=== PATIENT | female | born 1940 | race Caucasian/White ===

== ENCOUNTER 2017-11-17 14:43 | Inpatient (IN) | payer MEDICARE, OTHER ==
[~2017-11-17] VITALS: Ht 157.5 cm; Wt 93.6 kg
[2017-11-17 15:09] VITALS: BP 115/62; PULSE 64; TEMP 36.9; O2SAT 94; Ht 157.5 cm; Wt 93.6 kg
[2017-11-17] MEDS ORDERED: NRN300 PO (15:13)
[2017-11-17] MEDS ORDERED: MULT-190 PO (15:13)
[2017-11-17] MEDS ORDERED: BIOT1CAP3 PO (15:13)
[2017-11-17] MEDS ORDERED: PRAM0.1212 PO (15:13)
[2017-11-17] MEDS ORDERED: VTMD1000 PO (15:13)
[2017-11-17] MEDS ORDERED: PANT40TA PO (15:13)
[2017-11-17] MEDS ORDERED: LOSA50TA6 PO (15:13)
[2017-11-17] MEDS ORDERED: ASPI-435 PO (15:13)
[2017-11-17] MEDS ORDERED: CRG625 PO (15:13)
[2017-11-17] MEDS ORDERED: B-COTAB18 PO (15:13)
[2017-11-17] MEDS ORDERED: NRN/600 PO (15:13)
[2017-11-17] MEDS ORDERED: LEVO50TA PO (15:13)
[2017-11-17] MEDS ORDERED: FURO-85 PO (15:13)
[2017-11-17] MEDS ORDERED: ATOR-24 PO (15:13)
[2017-11-17] MEDS ORDERED: ALUMINUM/MAGNESIUM/SIMETH (MAALOX MAX) 30 ML UDC PO PRN (15:30)
[2017-11-17] MEDS ORDERED: NITROGLYCERIN 0.4 MG SL PER TAB CHARGE SL PRN (15:30)
[2017-11-17] MEDS ORDERED: MAGNESIUM HYDROXIDE SUSP 30 ML UDC PO PRN (15:30)
[2017-11-17] MEDS ORDERED: POLYETHYLENE (MIRALAX) 17 GM PACK PO PRN (15:30)
[2017-11-17] MEDS ORDERED: VANCOMYCIN CONSULT ACTIVE PRN (15:30)
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
[2017-11-17] MEDS ORDERED: CEFEPIME CONSULT ACTIVE PRN (16:15)
[2017-11-17] MEDS: INSULIN ASPART 100 UNITS/ML 3 ML PEN SC SCH ×2 (17:10→20:08)
[2017-11-17] MEDS: AZITHROMYCIN IV 500 MG in DEXTROSE 5% 250ML 250 ML IV SCH (17:11)
[2017-11-17 17:19] LABS: HEMATOCRIT 29.5 % (37-47); HEMOGLOBIN 9.6 g/dL (12.0-16.0); MEAN CELL VOLUME 92.2 fL (80-100); MEAN CORPUSCULAR HGB CONC 32.5 g/dl (32-36); MEAN PLATELET VOLUME 9.6 fL (7.4-10.4); PLATELET COUNT 129 K/uL (130-400); RED CELL DISTRIBUTION WIDTH CV 16.2 % (11.5-14.5); WHITE BLOOD COUNT 8.02 K/uL (4.8-10.8)
[2017-11-17 17:33] LABS: INR 1.1 (0.9-1.1)
--- NOTE | 2017-11-17 17:39 | DIAGNOSTIC IMAGING REPORT ---
CHEST ONE VIEW PORTABLE HISTORY: 76 years-old Female worsening PNA acute pneumonia COMPARISON: Chest radiographs 11/17/2017 from [facility] TECHNIQUE: Portable AP view of the chest FINDINGS: Cardiac silhouette appears enlarged, unchanged. Atherosclerosis of the aorta. Right internal jugular central venous catheter appears unchanged in positioning with distal tip at the level of the right main bronchus, within the expected region of the mid SVC. Pulmonary vascular congestion is noted with bilateral interstitial coarsening. Small bilateral pleural effusions. Consolidative opacities are noted throughout the right lung with minimal preservation of the right lung apex. Consolidative opacities are also present within the left lung base. There is slightly improved aeration of the left lung and mildly progressive disease of the right lung base from comparison. Severe likely chronic post traumatic changes about the right shoulder. Degenerative changes involve the shoulders and spine. IMPRESSION: 1. Cardiomegaly with persistent bilateral mixed interstitial and alveolar opacities, right greater than left with improved aeration of the left lung from comparison suggesting asymmetric pulmonary edema and/or pneumonia. 2. Small bilateral pleural effusions. The above report was generated using voice recognition software. It may contain grammatical, syntax or spelling errors. Electronically signed by: Luca Arora M.D. 11/17/2017 5:37 PM Dictated Date/Time: 11/17/2017 5:34 PM
[2017-11-17 17:42] LABS: CALCIUM 8.2 mg/dl (8.5-10.1); CREATININE 1.72 mg/dl (0.60-1.20); POTASSIUM 3.7 mmol/L (3.5-5.1)
--- NOTE | 2017-11-17 18:13 | Pharmacy Progress Note ---
Pharmacy Antibiotic Consult Date of Service: Nov 17, 2017. Pharmacy Dosing Scope Pharmacy is consulted to initiate vancomycin and cefepime IV dosing therapy, order appropriate labs and adjust drug dose/frequency. Subjective The patient is a 76 year old female admitted on Nov 17, 2017 at 14:43. Objective Height (Feet): 5 Height (Inches): 2.00 Weight (Kilograms): 96.200 Lab Results (24hrs): Item Value Date Time Random Vancomycin Level 26.1 mcg/ml 11/17/17 1656 Test 11/17/17 16:05 11/17/17 16:56 11/17/17 17:04 11/17/17 17:41 Bedside Glucose 106 mg/dl (70-90) White Blood Count 8.02 K/uL (4.8-10.8) Red Blood Count 3.20 M/uL (4.2-5.4) Hemoglobin 9.6 g/dL (12.0-16.0) Hematocrit 29.5 % (37-47) Mean Corpuscular Volume 92.2 fL (80-100) Mean Corpuscular Hemoglobin 30.0 pg (25-34) Mean Corpuscular Hemoglobin Concent 32.5 g/dl (32-36) RDW Standard Deviation 55.0 fL (36.4-46.3) RDW Coefficient of Variation 16.2 % (11.5-14.5) Platelet Count 129 K/uL (130-400) Mean Platelet Volume 9.6 fL (7.4-10.4) Prothrombin Time 11.4 SECONDS (9.0-12.0) Prothromb Time International Ratio 1.1 (0.9-1.1) Activated Partial Thromboplast Time 28.0 SECONDS (21.0-31.0) Partial Thromboplastin Ratio 1.1 Sodium Level 137 mmol/L (136-145) Potassium Level 3.7 mmol/L (3.5-5.1) Chloride Level 97 mmol/L (98-107) Carbon Dioxide Level 37 mmol/L (21-32) Anion Gap 3.0 mmol/L (3-11) Blood Urea Nitrogen 29 mg/dl (7-18) Creatinine 1.72 mg/dl (0.60-1.20) Est Creatinine Clear Calc Drug Dose 30.1 ml/min Estimated GFR () 32.9 Estimated GFR (Non- 28.4 BUN/Creatinine Ratio 16.9 (10-20) Random Glucose 130 mg/dl (70-99) Calcium Level 8.2 mg/dl (8.5-10.1) Random Vancomycin Level 26.1 mcg/ml Arterial Blood pH 7.41 (7.35-7.45) Arterial Blood Partial Pressure CO2 59 mmHg (35-46) Arterial Blood Partial Pressure O2 72 mm/Hg (80-95) Arterial Blood HCO3 36 mmol/L (19-24) Arterial Blood Oxygen Saturation 92.6 % (90-95) Arterial Blood Base Excess 10.0 mEq/L (-9-1.8) Arterial Blood Gas Delivery 6 LITERS O2 Bassam Test POS (POS) Test 11/17/17 18:02 Assessment & Plan Pt transferred from outside hospital due to worsening pneumonia. Previously on vancomycin and cefepime - will continue these agents on admission. Per notes, cultures from OSH are negative, MRSA nasal swab pending. Vancomycin: * Pt received dose at OSH of 750 mg at 0600 - per admitting MD ; random level ordered this evening is ~26 mcg/ml (goal 15-20 mcg/ml for PNA) * Estimated kinetics: t1/2~24 hrs, ke~0.029 hr-1, CrCl ~30ml/min * Will order a random level in the am to assist with further dosing, estimated level tomorrow am still >15 mcg/ml (therapeutic) Cefepime: * 1 gm iv q 24 hrs ordered - appropriate for now, could consider adjusting if Scr improves Pharmacy will continue to follow and will adjust dose/frequency as necessary. Thank you
--- NOTE | 2017-11-17 18:37 | DIAGNOSTIC IMAGING REPORT ---
HEAD WITHOUT CONTRAST (CT) CLINICAL HISTORY: 76 years-old Female with AMS. Acutely altered mental status TECHNIQUE: Multiple axial CT images of the head were obtained without contrast. A dose lowering technique was utilized adhering to the principles of ALARA. CT DOSE: 1694.96 mGycm COMPARISON: CT head 11/15/2017. FINDINGS: No acute intracranial hemorrhage, midline shift, intracranial mass, hydrocephalus, territorial ischemia or abnormal extra-axial collection. Ill-defined areas of low-attenuation within the periventricular white matter suggest mild chronic microvascular ischemic changes. Cerebral vascular calcifications are seen at the level of the skull base. The calvarium is intact. The paranasal sinuses, mastoid air cells, and middle ear cavities are clear. IMPRESSION: No acute intracranial abnormality. The above report was generated using voice recognition software. It may contain grammatical, syntax or spelling errors. Electronically signed by: Luca Arora M.D. 11/17/2017 6:36 PM Dictated Date/Time: 11/17/2017 6:34 PM
[2017-11-17 18:40] VITALS: BP 173/72; PULSE 77; TEMP 37; O2SAT 95
[2017-11-17] MEDS: ALBUT/IPRATROP 3MG/0.5MG NEB 3 ML VIAL INH SCH (18:58)
[2017-11-17 19:00] VITALS: PULSE 77; O2SAT 96
[2017-11-17 20:00] VITALS: O2SAT 91
[2017-11-17] MEDS: ACETAMINOPHEN 325 MG TAB PO PRN (20:26)
[2017-11-17] MEDS: GABAPENTIN 600 MG TAB PO SCH (20:27)
[2017-11-17] MEDS: PRAMIPEXOLE DIHYDROCHLORIDE 0.25MG TAB PO SCH (20:27)
[2017-11-17] MEDS: GABAPENTIN 300 MG CAP PO SCH (20:28)
[2017-11-17] MEDS: CARVEDILOL 6.25 MG TAB PO SCH (20:28)
[2017-11-17] MEDS: HEPARIN SOD 5000 UNIT/0.5 ML CARP SQ SCH (20:29)
[2017-11-17] MEDS ORDERED: VANCOMYCIN IV 1,000 MG in SODIUM CHLORIDE 0.9% 250ML 250 ML IV SCH (21:00)
[2017-11-17] MEDS ORDERED: NURSING VERBAL MED ORDER ONE (21:00)
[2017-11-17] MEDS ORDERED: HALOPERIDOL LACTATE 5 MG/ML 1 ML VIAL IV ONE ×2 (21:15→21:30)
[2017-11-17 23:25] VITALS: BP 140/63; PULSE 67; TEMP 36.9; O2SAT 93
[2017-11-18] VITALS (21 sets, daily range): BP systolic 136–210; BP diastolic 59–116; PULSE 62–90; TEMP 36–37; O2SAT 45–98
[2017-11-18 04:48] LABS: HEMATOCRIT 28.6 % (37-47); HEMOGLOBIN 9.3 g/dL (12.0-16.0); MEAN CELL VOLUME 91.7 fL (80-100); MEAN CORPUSCULAR HEMOGLOBIN 29.8 pg (25-34); MEAN CORPUSCULAR HGB CONC 32.5 g/dl (32-36); MEAN PLATELET VOLUME 9.6 fL (7.4-10.4); PLATELET COUNT 132 K/uL (130-400); RED CELL DISTRIBUTION WIDTH CV 16.1 % (11.5-14.5); RED CELL DISTRIBUTION WIDTH SD 53.9 fL (36.4-46.3); WHITE BLOOD COUNT 6.87 K/uL (4.8-10.8)
[2017-11-18 05:06] LABS: CREATININE 1.56 mg/dl (0.60-1.20); POTASSIUM 3.7 mmol/L (3.5-5.1)
[2017-11-18] MEDS: LEVOTHYROXINE 50 MCG TAB PO SCH (05:51)
[2017-11-18] MEDS: ALBUT/IPRATROP 3MG/0.5MG NEB 3 ML VIAL INH SCH ×4 (07:00→19:10)
[2017-11-18] MEDS: GABAPENTIN 300 MG CAP PO SCH ×3 (08:49→21:29)
[2017-11-18] MEDS: CEROVITE ADV FORMULA TAB PO SCH (08:49)
[2017-11-18] MEDS: PANTOprazole SOD 40 MG TAB PO SCH (08:49)
[2017-11-18] MEDS: ATORVASTATIN 20 MG TAB PO SCH (08:49)
[2017-11-18] MEDS: FUROSEMIDE 20 MG TAB PO SCH (08:50)
[2017-11-18] MEDS: CHOLECALCIFEROL 1000 INTER.UNIT TAB PO SCH (08:50)
[2017-11-18] MEDS: ASPIRIN 81 MG ECTAB PO SCH (08:51)
[2017-11-18] MEDS: LOSARTAN POTASSIUM 50 MG TAB PO SCH (08:51)
[2017-11-18] MEDS: CARVEDILOL 6.25 MG TAB PO SCH ×2 (08:51→21:28)
[2017-11-18] MEDS: INSULIN ASPART 100 UNITS/ML 3 ML PEN SC SCH ×4 (08:53→21:32)
[2017-11-18] MEDS: HEPARIN SOD 5000 UNIT/0.5 ML CARP SQ SCH ×2 (08:55→21:32)
[2017-11-18] MEDS ORDERED: CEFEPIME IV 1,000 MG in SYRINGE 0 ML IV SCH (09:00)
[2017-11-18] MEDS ORDERED: CEFEPIME IV 1,000 MG in DEXTROSE 5% 100ML 100 ML IV SCH (09:00)
[2017-11-18] MEDS ORDERED: PIPERACILL/TAZOBAC CONSULT ACTIVE PRN (10:00)
--- NOTE | 2017-11-18 10:15 | DIAGNOSTIC IMAGING REPORT ---
CT SCAN OF THE ABDOMEN AND PELVIS WITHOUT IV CONTRAST CLINICAL HISTORY: Generalized abdominal pain. COMPARISON STUDY: Abdominal radiograph dated 11/13/2017. TECHNIQUE: CT scan of the abdomen and pelvis is performed from the lung bases to the proximal femora. Images are reviewed in the axial, sagittal, and coronal planes. IV contrast was not administered for this examination as per the referring clinician. Note that the examination was performed and significantly suboptimal fashion without oral and IV contrast. The examination is also degraded by large body habitus, with streak artifact from the body wall abutting the CT gantry. There is also streak artifact from the patient's arms which could not be elevated above the abdomen as well as motion artifact. A dose lowering technique was utilized adhering to the principles of ALARA. CT DOSE: 2025.15 mGy.cm FINDINGS: Lung bases: The heart is normal in size and without pericardial effusion. The coronary arteries and mitral annulus are densely calcified. There are moderate pleural effusions with associated bibasilar atelectasis. A small hiatal hernia is noted. Liver: The unenhanced liver is normal in size, contour, and attenuation. There is no intrahepatic biliary ductal dilatation. There are numerous calcified hepatic granulomas. Gallbladder: Unremarkable. Spleen: Normal in size and attenuation. There are numerous calcified splenic granulomas. Pancreas: The unenhanced pancreas is markedly atrophic and grossly unremarkable. Adrenal glands: Unremarkable. Kidneys: The unenhanced kidneys are atrophic and without hydronephrosis. There are no renal calculi identified. There is no evidence of contour deforming renal mass lesion. There is nonspecific bilateral perinephric stranding and trace fluid. Abdominal vasculature: The abdominal aorta is normal in course and caliber noting moderate atherosclerotic calcification. Bowel: There is diastases of the rectus abdominis musculature in the pelvis with protrusion of bowel loops. There is mild colonic diverticulosis without CT evidence of acute diverticulitis. No bowel obstruction is seen. The appendix is not identified. Peritoneum: There is no intraperitoneal free air or abdominal ascites. A fat-containing umbilical hernia is noted. Lymphadenopathy: None. Pelvic viscera: The bladder is partially decompressed around a Ivory catheter and grossly unremarkable. The uterus is surgically absent. No adnexal lesion is seen. Skeletal structures: The skeletal structures are osteopenic. There is moderate to advanced lumbosacral spondylosis as well as mild scoliosis. No lytic or blastic lesions are seen. There are healed right posterior rib fractures. There are acute nondistracted right anterior 4th through 8th rib fractures. There are acute left anterior 4th through 6th rib fractures. Soft tissues: There is mild body wall edema. IMPRESSION: 1. Significantly compromised examination without oral and IV contrast. The examination is also degraded by streak and motion artifact. 2. Moderate bilateral pleural effusions with associated atelectasis. 3. There are acute anterior rib fractures seen bilaterally as above. 4. No acute infectious or inflammatory findings are identified in the abdomen or pelvis. 5. There is diastases of the rectus abdominis musculature in the pelvis with protrusion of bowel loops. No bowel obstruction is seen. 6. Additional findings as above. Electronically signed by: Donald Patiño M.D. 11/18/2017 10:14 AM Dictated Date/Time: 11/18/2017 10:04 AM
[2017-11-18] MEDS ORDERED: PIPERACILL/TAZOBAC IV 4.5 GM in DEXTROSE 5% 100ML IV ONE (10:30)
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
[2017-11-18] MEDS: METHYLPREDNISOLONE IV 60 MG in SYRINGE 0 ML IV SCH ×2 (10:56→17:47)
--- NOTE | 2017-11-18 11:26 | Pharmacy Progress Note ---
Pharmacy Abx Dose Short Note Date of Service Nov 18, 2017. Assessment & Plan Assessment * 76 year old female receiving transferred from [facility] for worsening pneumonia despite abx therapy and likely need for bronchoscopy * Pt has h/o recurrent PNA including fungal pneumonia * Was receiving Vancomycin + Cefepime prior to x-nicholas; now ordered Vancomycin + Zosyn + Azithromycin IV * Day # 5 vancomycin; Day # 1 of Zosyn + Azithromycin * Renal fxn stable, slightly improved based upon labs. U.O. not being followed closely. Non-hypotensive. * MRSA nasal swab negative, however given pt's poor response to abx therapy hospitalist would like to continue vancomycin at this time * Sputum cx pending Plan Vancomycin * 750mg IV reported to have been given at ~0600 on 11/17 * Random vancomycin levels drawn yesterday and today ~11-12 hours apart, level 1 = 26.1, level 2 = 21.8 * Based upon these levels I estimate her rate of elimination to be quite slow, in fact her half-life may be 40+ hrs based upon these levels vs the half-life calculated from her CrCl (22 hours half-life) * I estimate she will need redosed this afternoon at ~1600. Will give 1250mg x 1 (15mg/kg) * Will recheck random level 24 hrs after dose to assess elimination - but I suspect that she likely will not need redosed for 36+ hours * Goal trough level for pulm infxn : 15 to 20 mcg/mL Zosyn: * BMI > 35 * eCrCl > 20cc/min; 4.5gm IV over 30min, then 4.5gm IV extended infusion Q 8 hours Pharmacy will continue to follow and will adjust dose/frequency as necessary. Thank you.
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
[2017-11-18] MEDS ORDERED: PIPERACILL/TAZOBAC IV 3.375 GM in DEXTROSE 5% 100ML 100 ML IV SCH (14:00)
[2017-11-18] MEDS: AZITHROMYCIN IV 500 MG in DEXTROSE 5% 250ML 250 ML IV SCH (15:31)
[2017-11-18] MEDS: PIPERACILL/TAZOBAC IV 4.5 GM in DEXTROSE 5% 100ML IV SCH ×2 (15:31→23:22)
[2017-11-18] MEDS ORDERED: VANCOMYCIN IV 1,250 MG in SODIUM CHLORIDE 0.9% 250ML 250 ML IV ONE (16:00)
[2017-11-18] MEDS: HydrALAZINE HCL 20 MG/ML VIAL IV. PRN ×2 (16:35→23:19)
[2017-11-18] MEDS ORDERED: LIDOCAINE HCL 1% 20 ML VIAL ONE (17:22)
--- NOTE | 2017-11-18 18:06 | DIAGNOSTIC IMAGING REPORT ---
CHEST ONE VIEW PORTABLE CLINICAL HISTORY: S/P Thoracentesis PNEUMONIA COMPARISON STUDY: 11/17/2017 FINDINGS: The cardiac and mediastinal contours remain stable. There is a right internal jugular central venous catheter unchanged in position. There is improved aeration of the right lung. There is no pneumothorax status post thoracentesis. There is mild pulmonary vascular congestion. A small left pleural effusion is suspected.[ There are old right-sided rib deformities. IMPRESSION: 1. Radiographic evidence of mild pulmonary vascular congestion 2. No evidence of pneumothorax status post thoracentesis. 3. Improving aeration of the right lung. Electronically signed by: Everardo Ribera M.D. 11/18/2017 6:05 PM Dictated Date/Time: 11/18/2017 6:03 PM
--- NOTE | 2017-11-18 18:10 | Procedure Note ---
Procedure Note Procedure Date Nov 18, 2017. Procedure Description Procedure Name: Right thoracentesis Procedure time out: side/site verified, patient ID confirmed, correct procedure Consent obtained: written, verbal Time of procedure: 17:00 Performed by: attending, physician soyfreeze operator (Donald Hernadez PA-C) Indications: diagnostic, therapeutic Contraindications: none Description: Patient positioned in sitting position at the side of the bed, leaning on the table. Using ultrasound, I identified a good collection of fluid in the posterior area on the right side of the chest and marked the spot. Area was cleaned with chlorhexidine. Full sterile precautions maintained. The skin over the area was infiltrated with 1% Lidocaine, after which the thoracentesis needle was inserted until I obtained a flush of pleural fluid in the syringe. Then, I advanced the catheter over the needle while withdrawing the needle. Sample were sent Overall I drained 900 ml of pink/orange appearing fluid, slightly turbid, after which the drainage stopped Catheter was withdrawn and an adhesive dressing was applied. CXR reviewed. No pneumothorax. Near complete resolution of right pleural effusion Complications: none Patient tolerated procedure: well Post-procedure vital signs: reviewed and stable
[2017-11-18 18:17] LABS: PLEURAL FLUID TOTAL PROTEIN 2.8 g/dl
[2017-11-18] MEDS: PRAMIPEXOLE DIHYDROCHLORIDE 0.25MG TAB PO SCH (21:28)
[2017-11-18] MEDS: GABAPENTIN 600 MG TAB PO SCH (21:29)
[2017-11-19] VITALS (12 sets, daily range): BP systolic 119–176; BP diastolic 58–97; PULSE 70–98; TEMP 36.6–37.1; O2SAT 91–97
[2017-11-19] MEDS: INSULIN ASPART 100 UNITS/ML 3 ML PEN SC SCH ×5 (00:19→20:43)
[2017-11-19] MEDS: METHYLPREDNISOLONE IV 60 MG in SYRINGE 0 ML IV SCH ×2 (04:15→11:22)
[2017-11-19 04:22] LABS: HEMATOCRIT 31.2 % (37-47); HEMOGLOBIN 10.2 g/dL (12.0-16.0); MEAN CELL VOLUME 90.7 fL (80-100); MEAN CORPUSCULAR HEMOGLOBIN 29.7 pg (25-34); MEAN CORPUSCULAR HGB CONC 32.7 g/dl (32-36); MEAN PLATELET VOLUME 9.2 fL (7.4-10.4); PLATELET COUNT 180 K/uL (130-400); RED CELL DISTRIBUTION WIDTH CV 15.4 % (11.5-14.5); RED CELL DISTRIBUTION WIDTH SD 51.3 fL (36.4-46.3); WHITE BLOOD COUNT 5.69 K/uL (4.8-10.8)
[2017-11-19 04:50] LABS: ALBUMIN 2.2 gm/dl (3.4-5.0); CALCIUM 8.2 mg/dl (8.5-10.1); CREATININE 1.59 mg/dl (0.60-1.20)
[2017-11-19 04:59] LABS: TOTAL PROTEIN 6.5 gm/dl (6.4-8.2)
[2017-11-19] MEDS: LEVOTHYROXINE 50 MCG TAB PO SCH (06:19)
[2017-11-19] MEDS: ALBUT/IPRATROP 3MG/0.5MG NEB 3 ML VIAL INH SCH ×4 (07:01→19:32)
[2017-11-19] MEDS: PIPERACILL/TAZOBAC IV 4.5 GM in DEXTROSE 5% 100ML IV SCH ×3 (08:03→23:39)
--- NOTE | 2017-11-19 09:20 | Pulmonology Progress Note ---
Pulmonary Progress Note Date of Service Nov 19, 2017. Attending Dr. Martínez Subjective Patient sitting upright in bedside chair. Alert and oriented X 4. Expresses hunger. Was able to recall daughters phone number and spoke to her on the phone. No fever or chills. Cough but no significant sputum. Positive pain with cough secondary to recent rib fractures. Objective Vital Signs - as noted below Laboratory Data - as noted below Physical Exam: General - NAD. Pleasant Eyes - No icterus, gaze conjugate ENT - Mucosa moist, no lesions or candidiasis. Oxymask in place Neck - Supple, No JVD. Right IJ inplace. Dressing in place and secure Lungs - No bronchospasm, rales, or rhonchi. Heart - Regular, rate controlled Abdomen - Soft, NT, ND, BS present Extremities - No edema, pedal pulses intact Neuro - A&OX3 Assessment & Plan Bilateral pleural effusions * Right thoracentesis yesterday with 900 mL evacuated -await pathology and microbiology results * Monitor clinically Hypoxemic/hypercapnic respiratory failure * Right thoracentesis yesterday with significant improvement to respiratory status * BiPAP successfully used overnight. Continue as tolerated * Patient up in chair, alert and oriented, on Oxymask this morning * Continue antibiotics pending cultures * Continue steroids but decrease methylprednisolone to 40 mg every 12 hours DVT prophylaxis * Continue heparin subcu Thank you for including us in the care of this patient. Please refer to Dr. Martínez's addendum for further recommendations Data Medications: Current Inpatient Medications Medications (Trade) Dose Ordered Sig/Dexter Route Start Time Stop Time Status Last Admin Dose Admin Heparin Sodium (Porcine) (Heparin Sq 5000 Unit/0.5ml) 5,000 unit Q12 SQ 11/17/17 21:00 12/17/17 20:59 11/18/17 21:32 5,000 UNIT Acetaminophen (Tylenol Tab) 650 mg Q4H PRN PO 11/17/17 15:30 12/17/17 15:29 11/17/17 20:26 650 MG Al Hydrox/Mg Hydrox/Simethicone (Maalox Max Susp) 15 ml Q4H PRN PO 11/17/17 15:30 12/17/17 15:29 Magnesium Hydroxide (Milk Of Magnesia Susp) 30 ml Q12H PRN PO 11/17/17 15:30 12/17/17 15:29 Ondansetron HCl (Zofran Inj) 4 mg Q6H PRN IV 11/17/17 15:30 12/17/17 15:29 Nitroglycerin (Nitrostat Tab) 0.4 mg UD PRN SL 11/17/17 15:30 12/17/17 15:29 Polyethylene (Miralax Powder Packet) 17 gm DAILY PRN PO 11/17/17 15:30 12/17/17 15:29 Albuterol/ Ipratropium (Duoneb) 3 ml QIDR INH 11/17/17 16:00 12/17/17 15:59 11/19/17 07:01 3 ML Miscellaneous Information (Consult) 1 ea UD PRN N/A 11/17/17 15:30 12/17/17 15:29 Azithromycin 500 mg/Dextrose 255 ml @ 125 mls/hr Q24H IV 11/17/17 17:00 11/24/17 16:59 11/18/17 15:31 125 MLS/HR Aspirin (Ecotrin Tab) 81 mg DAILY PO 11/18/17 09:00 12/18/17 08:59 11/18/17 08:51 81 MG Atorvastatin Calcium (Lipitor Tab) 40 mg DAILY PO 11/18/17 09:00 12/18/17 08:59 11/18/17 08:49 40 MG Carvedilol (Coreg Tab) 6.25 mg BID PO 11/17/17 21:00 12/17/17 20:59 11/18/17 08:51 6.25 MG Cholecalciferol (Vitamin D Tab) 2,000 inter.unit DAILY PO 11/18/17 09:00 12/18/17 08:59 11/18/17 08:50 2,000 INTER.UNIT Gabapentin (Neurontin Cap) 300 mg TID PO 11/17/17 21:00 12/17/17 20:59 11/18/17 08:49 300 MG Gabapentin (Neurontin Tab) 600 mg HS PO 11/17/17 21:00 12/17/17 20:59 11/17/17 20:27 600 MG Levothyroxine Sodium (Synthroid Tab) 50 mcg DAILYBB PO 11/18/17 06:00 12/18/17 05:59 11/18/17 05:51 50 MCG Losartan Potassium (coZAAR TAB) 50 mg DAILY PO 11/18/17 09:00 12/18/17 08:59 11/18/17 08:51 50 MG Multivitamins/ Minerals (Multivitamin W/ Minerals Tab) 1 tab DAILY PO 11/18/17 09:00 12/18/17 08:59 11/18/17 08:49 1 TAB Pantoprazole Sodium (Protonix Tab) 40 mg DAILY PO 11/18/17 09:00 12/18/17 08:59 11/18/17 08:49 40 MG Pramipexole Dihydrochloride (miraPEX TAB) 0.5 mg HS PO 11/17/17 21:00 12/17/17 20:59 11/17/17 20:27 0.5 MG Furosemide (Lasix Tab) 20 mg DAILY PO 11/18/17 09:00 12/18/17 08:59 11/18/17 08:50 20 MG Heparin Sodium (Porcine) (Heparin 10 Unit/ ml 5 ml Flush) 5 ml PRN PRN FLUSH 11/17/17 23:15 12/17/17 23:14 Miscellaneous Information (Consult) 1 ea UD PRN N/A 11/18/17 10:00 12/18/17 09:59 Piperacillin Sod/ Tazobactam Sod 4.5 gm/Dextrose 120 ml @ 30 mls/hr Q8H IV 11/18/17 16:00 11/25/17 15:59 11/19/17 08:03 30 MLS/HR Methylprednisolone Sodium Succinate 60 mg/Syringe 0.96 ml @ 1.5 mls/min Q8H IV 11/18/17 11:00 12/18/17 10:29 11/19/17 04:15 1.5 MLS/MIN Hydromorphone HCl (Dilaudid Inj) 0.25 mg Q1H PRN IV 11/18/17 10:30 12/02/17 10:29 Hydralazine HCl (HydrALAZINE INJ) 10 mg Q6H PRN IV. 11/18/17 15:45 12/18/17 15:44 11/18/17 23:19 10 MG Insulin Aspart (novoLOG ASPART) SLIDING SCALE G... Q6 SC 11/19/17 00:00 12/19/17 00:00 11/19/17 06:29 2 UNITS Vital Signs: Date Time Temp Pulse Resp B/P (MAP) Pulse Ox O2 Delivery O2 Flow Rate FiO2 11/19/17 08:34 145/66 (92) 11/19/17 07:35 37.1 92 16 176/73 (107) 93 BiPAP 11/19/17 07:04 91 91 45 11/19/17 07:03 91 20 94 BiPAP/CPAP 45 11/19/17 04:00 BiPAP 45 11/19/17 03:55 36.6 98 20 119/58 (78) 94 BiPAP 11/19/17 00:00 BiPAP 45 11/18/17 23:58 36.6 86 16 178/81 (113) 95 BiPAP 11/18/17 22:29 89 95 45 11/18/17 20:00 45 BiPAP 11/18/17 19:51 83 18 155/78 (103) BiPAP 40 11/18/17 19:11 86 94 11/18/17 19:10 89 16 94 BiPAP/CPAP 45 11/18/17 18:30 37.0 27 162/85 (110) 94 BiPAP 11/18/17 16:00 92 Oxymask BiPAP 11/18/17 15:12 36.9 74 10 210/116 (147) 92 BiPAP 11/18/17 14:24 62 92 11/18/17 14:24 86 18 92 BiPAP/CPAP 45 11/18/17 13:20 92 11/18/17 12:22 36.0 63 16 149/82 (104) 95 BiPAP 11/18/17 12:00 92 Oxymask BiPAP 11/18/17 11:28 90 92 11/18/17 11:25 90 18 92 BiPAP/CPAP 40 Laboratory Results: Last 24 Hours Test 11/18/17 10:46 11/18/17 10:47 11/18/17 11:14 11/18/17 11:20 Iron Level 20 mcg/dl Total Iron Binding Capacity 199 mcg/dl Transferrin 154 mg/dl Transferrin % Saturation 9 % Ferritin 171.9 ng/ml Vitamin B12 Level 958 pg/mL Folate > 24.00 ng/mL Lactic Acid Level 1.0 mmol/L Urine Color YELLOW Urine Appearance CLOUDY Urine pH 6.5 Urine Specific [place] 1.008 Urine Protein NEG Urine Glucose (UA) NEG Urine Ketones NEG Urine Occult Blood 2+ Urine Nitrite NEG Urine Bilirubin NEG Urine Urobilinogen NEG Urine Leukocyte Esterase LARGE Urine WBC (Auto) >30 /hpf Urine RBC (Auto) 10-30 /hpf Urine Hyaline Casts (Auto) 1-5 /lpf Urine Epithelial Cells (Auto) 10-20 /lpf Urine Bacteria (Auto) NEG Urine Pathogenic Casts 1-5 GRANULAR CASTS /lpf Urine Yeast (Auto) Bedside Glucose 134 mg/dl Test 11/18/17 15:04 11/18/17 16:13 11/18/17 17:10 11/18/17 17:46 Arterial Blood pH 7.40 Arterial Blood Partial Pressure CO2 61 mmHg Arterial Blood Partial Pressure O2 62 mm/Hg Arterial Blood HCO3 37 mmol/L Arterial Blood Oxygen Saturation 89.0 % Arterial Blood Base Excess 10.2 mEq/L Arterial Blood Gas Delivery 45% Bassam Test POS Bedside Glucose 166 mg/dl Pleural Fluid Source RIGHT LUNG Pleural Fluid Color RED Pleural Fluid Appearance BLOODY Pleural Fluid WBC 1796 /uL Pleural Fluid RBC 75279 /uL Pleural Fluid pH 7.47 Pleural Fluid Polynuclear WBCs % 8.5 % Pleural Fluid Mononuclear WBCs % 91.5 % Pleural Fluid Total Protein 2.8 g/dl Pleural Fluid LDH 164 IU Pleural Fluid Glucose 171 mg/dl Pleural Fluid Amylase 24 U/L Lactate Dehydrogenase 274 U/L Test 11/18/17 23:46 11/19/17 04:12 11/19/17 06:08 Bedside Glucose 175 mg/dl 205 mg/dl White Blood Count 5.69 K/uL Red Blood Count 3.44 M/uL Hemoglobin 10.2 g/dL Hematocrit 31.2 % Mean Corpuscular Volume 90.7 fL Mean Corpuscular Hemoglobin 29.7 pg Mean Corpuscular Hemoglobin Concent 32.7 g/dl RDW Standard Deviation 51.3 fL RDW Coefficient of Variation 15.4 % Platelet Count 180 K/uL Mean Platelet Volume 9.2 fL Sodium Level 137 mmol/L Potassium Level 4.0 mmol/L Chloride Level 97 mmol/L Carbon Dioxide Level 33 mmol/L Anion Gap 7.0 mmol/L Blood Urea Nitrogen 30 mg/dl Creatinine 1.59 mg/dl Est Creatinine Clear Calc Drug Dose 32.3 ml/min Estimated GFR () 36.2 Estimated GFR (Non- 31.2 BUN/Creatinine Ratio 18.7 Random Glucose 192 mg/dl Calcium Level 8.2 mg/dl Total Bilirubin 1.1 mg/dl Direct Bilirubin 0.3 mg/dl Aspartate Amino Transf (AST/SGOT) 14 U/L Alanine Aminotransferase (ALT/SGPT) 28 U/L Alkaline Phosphatase 94 U/L Total Protein 6.5 gm/dl Albumin 2.2 gm/dl
[2017-11-19] MEDS: PANTOprazole SOD 40 MG TAB PO SCH (10:18)
[2017-11-19] MEDS: CEROVITE ADV FORMULA TAB PO SCH (10:18)
[2017-11-19] MEDS: GABAPENTIN 300 MG CAP PO SCH ×3 (10:19→20:39)
[2017-11-19] MEDS: ATORVASTATIN 20 MG TAB PO SCH (10:19)
[2017-11-19] MEDS: CARVEDILOL 6.25 MG TAB PO SCH ×2 (10:19→20:41)
[2017-11-19] MEDS: CHOLECALCIFEROL 1000 INTER.UNIT TAB PO SCH (10:19)
[2017-11-19] MEDS: LOSARTAN POTASSIUM 50 MG TAB PO SCH (10:22)
[2017-11-19] MEDS: ASPIRIN 81 MG ECTAB PO SCH (10:22)
[2017-11-19] MEDS: HEPARIN SOD 5000 UNIT/0.5 ML CARP SQ SCH ×2 (10:25→20:44)
[2017-11-19] MEDS: FUROSEMIDE 20 MG TAB PO SCH (11:22)
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
[2017-11-19] MEDS: AZITHROMYCIN IV 500 MG in DEXTROSE 5% 250ML 250 ML IV SCH (17:38)
[2017-11-19] MEDS ORDERED: NURSING VERBAL MED ORDER ONE ×2 (17:45)
[2017-11-19] MEDS ORDERED: LANTUS PER UNIT CHARGE SQ SCH (18:00)
[2017-11-19] MEDS: METHYLPREDNISOLONE IV 40 MG in SYRINGE 0 ML IV SCH (19:56)
[2017-11-19] MEDS: GABAPENTIN 600 MG TAB PO SCH (20:39)
[2017-11-19] MEDS: PRAMIPEXOLE DIHYDROCHLORIDE 0.25MG TAB PO SCH (20:39)
[2017-11-20] VITALS (12 sets, daily range): BP systolic 104–162; BP diastolic 59–83; PULSE 59–70; TEMP 35.6–37.1; O2SAT 88–98
[2017-11-20] MEDS: LEVOTHYROXINE 50 MCG TAB PO SCH (06:03)
[2017-11-20 06:59] LABS: HEMATOCRIT 30.6 % (37-47); HEMOGLOBIN 9.9 g/dL (12.0-16.0); MEAN CELL VOLUME 90.8 fL (80-100); MEAN CORPUSCULAR HEMOGLOBIN 29.4 pg (25-34); MEAN CORPUSCULAR HGB CONC 32.4 g/dl (32-36); MEAN PLATELET VOLUME 9.4 fL (7.4-10.4); PLATELET COUNT 239 K/uL (130-400); RED CELL DISTRIBUTION WIDTH CV 15.4 % (11.5-14.5); RED CELL DISTRIBUTION WIDTH SD 50.7 fL (36.4-46.3); WHITE BLOOD COUNT 7.38 K/uL (4.8-10.8)
[2017-11-20] MEDS: INSULIN ASPART 100 UNITS/ML 3 ML PEN SC SCH ×4 (07:00→21:10)
[2017-11-20] MEDS: ALBUT/IPRATROP 3MG/0.5MG NEB 3 ML VIAL INH SCH ×4 (07:01→19:13)
[2017-11-20 07:46] LABS: CALCIUM 8.4 mg/dl (8.5-10.1); CREATININE 1.75 mg/dl (0.60-1.20); POTASSIUM 3.6 mmol/L (3.5-5.1)
[2017-11-20] MEDS ORDERED: VANCOMYCIN IV 1,250 MG in SODIUM CHLORIDE 0.9% 250ML 250 ML IV ONE ×2 (08:30→09:30)
[2017-11-20] MEDS: METHYLPREDNISOLONE IV 40 MG in SYRINGE 0 ML IV SCH (08:34)
[2017-11-20] MEDS: CARVEDILOL 6.25 MG TAB PO SCH ×2 (08:35→21:08)
[2017-11-20] MEDS: LOSARTAN POTASSIUM 50 MG TAB PO SCH (08:35)
[2017-11-20] MEDS: FUROSEMIDE 20 MG TAB PO SCH (08:36)
[2017-11-20] MEDS: ATORVASTATIN 20 MG TAB PO SCH (08:36)
[2017-11-20] MEDS: ASPIRIN 81 MG ECTAB PO SCH (08:36)
[2017-11-20] MEDS: CEROVITE ADV FORMULA TAB PO SCH (08:36)
[2017-11-20] MEDS: GABAPENTIN 300 MG CAP PO SCH ×3 (08:37→21:07)
[2017-11-20] MEDS: PANTOprazole SOD 40 MG TAB PO SCH (08:37)
[2017-11-20] MEDS: CHOLECALCIFEROL 1000 INTER.UNIT TAB PO SCH (08:37)
[2017-11-20] MEDS: PIPERACILL/TAZOBAC IV 4.5 GM in DEXTROSE 5% 100ML IV SCH ×3 (08:39→23:20)
[2017-11-20] MEDS: HEPARIN SOD 5000 UNIT/0.5 ML CARP SQ SCH ×2 (08:40→21:10)
[2017-11-20] MEDS: AZITHROMYCIN 250 MG TAB PO SCH (09:00)
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
[2017-11-20] MEDS ORDERED: LANTUS PER UNIT CHARGE SQ SCH (13:00)
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
--- NOTE | 2017-11-20 14:27 | Pulmonology Progress Note ---
Pulmonary Progress Note Date of Service Nov 20, 2017. Attending Dr. Martínez Subjective Patient sitting in bedside chair. Nasal cannula in place. Oxygenation adequate. Poor time sleeping last night the patient states that this is usual for her. Minimal cough. No hemoptysis or significant sputum. No acute complaints Objective Vital Signs - as noted below Laboratory Data - as noted below Physical Exam: General - NAD. Pleasant. Talkative with no dyspnea with phonation Eyes - No icterus, gaze conjugate ENT - Mucosa moist, no lesions or candidiasis. nasal cannula in place Neck - Supple, No JVD. Right IJ inplace. Dressing in place and secure Lungs - No bronchospasm, rales, or rhonchi. Heart - Regular, rate controlled Abdomen - Soft, NT, ND, BS present Extremities - No edema, pedal pulses intact Neuro - A&OX3 Assessment & Plan Bilateral pleural effusions * Right thoracentesis yesterday with 900 mL evacuated * No organisms on pleural fluid culture * Await pathology results * Monitor clinically Hypoxemic/hypercapnic respiratory failure * S/P Right thoracentesis with significant improvement to respiratory status * Now oxygenating well with nasal cannula * Continue antibiotics - de-escalate -MRSA screening negative. No growth on pleural fluid * Convert to prednisone oral taper DVT prophylaxis * Continue heparin subcu * Ambulate as tolerated Thank you for including us in the care of this patient. Please refer to Dr. Martínez's addendum for further recommendations Data Medications: Current Inpatient Medications Medications (Trade) Dose Ordered Sig/Dexter Route Start Time Stop Time Status Last Admin Dose Admin Heparin Sodium (Porcine) (Heparin Sq 5000 Unit/0.5ml) 5,000 unit Q12 SQ 11/17/17 21:00 12/17/17 20:59 11/20/17 08:40 5,000 UNIT Acetaminophen (Tylenol Tab) 650 mg Q4H PRN PO 11/17/17 15:30 12/17/17 15:29 11/17/17 20:26 650 MG Al Hydrox/Mg Hydrox/Simethicone (Maalox Max Susp) 15 ml Q4H PRN PO 11/17/17 15:30 12/17/17 15:29 Magnesium Hydroxide (Milk Of Magnesia Susp) 30 ml Q12H PRN PO 11/17/17 15:30 12/17/17 15:29 Ondansetron HCl (Zofran Inj) 4 mg Q6H PRN IV 11/17/17 15:30 12/17/17 15:29 Nitroglycerin (Nitrostat Tab) 0.4 mg UD PRN SL 11/17/17 15:30 12/17/17 15:29 Polyethylene (Miralax Powder Packet) 17 gm DAILY PRN PO 11/17/17 15:30 12/17/17 15:29 Albuterol/ Ipratropium (Duoneb) 3 ml QIDR INH 11/17/17 16:00 12/17/17 15:59 11/20/17 11:41 3 ML Aspirin (Ecotrin Tab) 81 mg DAILY PO 11/18/17 09:00 12/18/17 08:59 11/20/17 08:36 81 MG Atorvastatin Calcium (Lipitor Tab) 40 mg DAILY PO 11/18/17 09:00 12/18/17 08:59 11/20/17 08:36 40 MG Carvedilol (Coreg Tab) 6.25 mg BID PO 11/17/17 21:00 12/17/17 20:59 11/20/17 08:35 6.25 MG Cholecalciferol (Vitamin D Tab) 2,000 inter.unit DAILY PO 11/18/17 09:00 12/18/17 08:59 11/20/17 08:37 2,000 INTER.UNIT Gabapentin (Neurontin Cap) 300 mg TID PO 11/17/17 21:00 12/17/17 20:59 11/20/17 08:37 300 MG Gabapentin (Neurontin Tab) 600 mg HS PO 11/17/17 21:00 12/17/17 20:59 11/19/17 20:39 600 MG Levothyroxine Sodium (Synthroid Tab) 50 mcg DAILYBB PO 11/18/17 06:00 12/18/17 05:59 11/20/17 06:03 50 MCG Losartan Potassium (coZAAR TAB) 50 mg DAILY PO 11/18/17 09:00 12/18/17 08:59 11/20/17 08:35 50 MG Multivitamins/ Minerals (Multivitamin W/ Minerals Tab) 1 tab DAILY PO 11/18/17 09:00 12/18/17 08:59 11/20/17 08:36 1 TAB Pantoprazole Sodium (Protonix Tab) 40 mg DAILY PO 11/18/17 09:00 12/18/17 08:59 11/20/17 08:37 40 MG Pramipexole Dihydrochloride (miraPEX TAB) 0.5 mg HS PO 11/17/17 21:00 12/17/17 20:59 11/19/17 20:39 0.5 MG Furosemide (Lasix Tab) 20 mg DAILY PO 11/18/17 09:00 12/18/17 08:59 Future Hold 11/20/17 08:36 20 MG Heparin Sodium (Porcine) (Heparin 10 Unit/ ml 5 ml Flush) 5 ml PRN PRN FLUSH 11/17/17 23:15 12/17/17 23:14 Miscellaneous Information (Consult) 1 ea UD PRN N/A 11/18/17 10:00 12/18/17 09:59 Piperacillin Sod/ Tazobactam Sod 4.5 gm/Dextrose 120 ml @ 30 mls/hr Q8H IV 11/18/17 16:00 11/25/17 15:59 11/20/17 08:39 30 MLS/HR Hydromorphone HCl (Dilaudid Inj) 0.25 mg Q1H PRN IV 11/18/17 10:30 12/02/17 10:29 Hydralazine HCl (HydrALAZINE INJ) 10 mg Q6H PRN IV. 11/18/17 15:45 12/18/17 15:44 11/18/17 23:19 10 MG Insulin Aspart (novoLOG ASPART) SLIDING SCALE G... ACHS SC 11/19/17 16:15 12/19/17 00:00 11/20/17 11:00 9 UNITS Azithromycin (Zithromax Tab) 250 mg Q24H PO 11/20/17 09:00 11/27/17 08:59 Prednisone (PredniSONE TAB) 60 mg QAM PO 11/21/17 09:00 12/21/17 08:59 I & O: 24-Hour Column 11/21/17 08:00 Intake Total 530 ml Balance 530 ml Vital Signs: Date Time Temp Pulse Resp B/P (MAP) Pulse Ox O2 Delivery O2 Flow Rate FiO2 11/20/17 11:39 Nasal Cannula 5.0 11/20/17 11:18 36.5 60 20 104/65 (78) 97 Nasal Cannula 5.0 11/20/17 11:05 65 16 96 Nasal Cannula 5.0 11/20/17 07:40 Nasal Cannula 5.0 11/20/17 07:01 70 16 94 Mask 5.0 11/20/17 06:59 36.4 69 20 141/70 (93) 95 Oxymask 5.0 11/20/17 05:14 37.1 64 18 119/63 (81) 92 BiPAP 11/20/17 04:00 BiPAP 45 11/20/17 00:15 37.1 69 17 143/68 (93) 88 Nasal Cannula 6.0 11/20/17 00:00 BiPAP 45 11/19/17 23:40 70 96 45 11/19/17 20:00 Oxymask 5.0 11/19/17 19:32 75 16 95 Mask 5.0 11/19/17 19:28 36.7 76 20 144/63 (90) 92 Oxymask 5.0 11/19/17 16:00 Oxymask 5.0 11/19/17 15:20 74 16 94 Mask 5.0 11/19/17 15:10 36.9 77 18 126/97 (107) 97 Oxymask 5.0 Laboratory Results: Last 24 Hours Test 11/19/17 16:03 11/19/17 16:17 11/19/17 19:53 11/20/17 06:32 Random Vancomycin Level 23.5 mcg/ml Bedside Glucose 290 mg/dl 269 mg/dl White Blood Count 7.38 K/uL Red Blood Count 3.37 M/uL Hemoglobin 9.9 g/dL Hematocrit 30.6 % Mean Corpuscular Volume 90.8 fL Mean Corpuscular Hemoglobin 29.4 pg Mean Corpuscular Hemoglobin Concent 32.4 g/dl RDW Standard Deviation 50.7 fL RDW Coefficient of Variation 15.4 % Platelet Count 239 K/uL Mean Platelet Volume 9.4 fL Sodium Level 137 mmol/L Potassium Level 3.6 mmol/L Chloride Level 95 mmol/L Carbon Dioxide Level 34 mmol/L Anion Gap 8.0 mmol/L Blood Urea Nitrogen 39 mg/dl Creatinine 1.75 mg/dl Est Creatinine Clear Calc Drug Dose 28.8 ml/min Estimated GFR () 32.2 Estimated GFR (Non- 27.8 BUN/Creatinine Ratio 22.3 Random Glucose 183 mg/dl Calcium Level 8.4 mg/dl Procalcitonin 0.10 ng/ml Test 11/20/17 07:12 11/20/17 11:20 Bedside Glucose 174 mg/dl 202 mg/dl
[2017-11-20] MEDS: GABAPENTIN 600 MG TAB PO SCH (21:07)
[2017-11-20] MEDS: PRAMIPEXOLE DIHYDROCHLORIDE 0.25MG TAB PO SCH (21:08)
[2017-11-21] VITALS (15 sets, daily range): BP systolic 103–170; BP diastolic 47–94; PULSE 54–68; TEMP 35.7–36.7; O2SAT 91–100
[2017-11-21 04:15] LABS: BASO % 0.1 %; BASO ABS # 0.01 K/uL (0-0.2); EOS % 0.2 %; EOS ABS # 0.02 K/uL (0-0.5); HEMATOCRIT 29.9 % (37-47); HEMOGLOBIN 9.9 g/dL (12.0-16.0); IG# 0.03 K/uL (0.00-0.02); LYMPH % 19.6 %; LYMPH ABS # 1.78 K/uL (1.2-3.4); MEAN CELL VOLUME 90.3 fL (80-100); MEAN CORPUSCULAR HEMOGLOBIN 29.9 pg (25-34); MEAN CORPUSCULAR HGB CONC 33.1 g/dl (32-36); MONO % 9.2 %; MONO ABS # 0.84 K/uL (0.11-0.59); NEUT % 70.6 %; NEUT ABS # 6.42 K/uL (1.4-6.5); PLATELET COUNT 222 K/uL (130-400); RED CELL DISTRIBUTION WIDTH CV 15.4 % (11.5-14.5); RED CELL DISTRIBUTION WIDTH SD 50.9 fL (36.4-46.3)
[2017-11-21 04:51] LABS: CREATININE 1.81 mg/dl (0.60-1.20)
[2017-11-21 04:52] LABS: CALCIUM 7.8 mg/dl (8.5-10.1); POTASSIUM 3.2 mmol/L (3.5-5.1)
[2017-11-21 04:53] LABS: ALBUMIN 2.3 gm/dl (3.4-5.0); TOTAL PROTEIN 6.4 gm/dl (6.4-8.2)
[2017-11-21] MEDS ORDERED: NURSING VERBAL MED ORDER ONE (05:15)
[2017-11-21] MEDS: LEVOTHYROXINE 50 MCG TAB PO SCH (05:28)
[2017-11-21] MEDS ORDERED: POTASSIUM CHLORIDE 20 MEQ TABCR PO SCH (05:30)
[2017-11-21] MEDS: ALBUT/IPRATROP 3MG/0.5MG NEB 3 ML VIAL INH SCH ×4 (06:58→18:56)
[2017-11-21] MEDS: CEROVITE ADV FORMULA TAB PO SCH (07:39)
[2017-11-21] MEDS: CARVEDILOL 6.25 MG TAB PO SCH ×2 (07:39→20:55)
[2017-11-21] MEDS: LOSARTAN POTASSIUM 50 MG TAB PO SCH (07:39)
[2017-11-21] MEDS: PANTOprazole SOD 40 MG TAB PO SCH (07:39)
[2017-11-21] MEDS: PIPERACILL/TAZOBAC IV 4.5 GM in DEXTROSE 5% 100ML IV SCH ×2 (07:39→16:18)
[2017-11-21] MEDS: ASPIRIN 81 MG ECTAB PO SCH (07:40)
[2017-11-21] MEDS: GABAPENTIN 300 MG CAP PO SCH ×3 (07:40→20:57)
[2017-11-21] MEDS: CHOLECALCIFEROL 1000 INTER.UNIT TAB PO SCH (07:41)
[2017-11-21] MEDS: ATORVASTATIN 20 MG TAB PO SCH (07:41)
[2017-11-21] MEDS: AZITHROMYCIN 250 MG TAB PO SCH (07:42)
[2017-11-21] MEDS: INSULIN ASPART 100 UNITS/ML 3 ML PEN SC SCH ×4 (07:56→21:03)
[2017-11-21] MEDS: HEPARIN SOD 5000 UNIT/0.5 ML CARP SQ SCH ×2 (07:57→21:04)
[2017-11-21] MEDS ORDERED: POTASSIUM CHLORIDE 10 MEQ TABCR PO ONE (09:15)
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
--- NOTE | 2017-11-21 13:20 | DIAGNOSTIC IMAGING REPORT ---
SINGLE VIEW CHEST CLINICAL HISTORY: Pleural effusion. FINDINGS: An AP, portable, upright chest radiograph is compared to study dated 11/20/2017. The examination is severely degraded by portable technique and patient rotation. A right internal jugular central venous infusion port is unchanged in position. The heart is enlarged and there is atherosclerotic calcification of the thoracic aorta. There is pulmonary vascular congestion and interstitial edema. This has worsened from yesterday. There are right larger than left pleural effusions with associated consolidation. No pneumothorax is seen. The skeletal structures are osteopenic. There is chronic posttraumatic deformity of the right humerus. Numerous right-sided rib fractures are noted. IMPRESSION: 1. Cardiomegaly with evidence of congestive failure and interstitial edema. This has worsened from yesterday. 2. Right larger than left pleural effusions associated consolidation. These have increased from yesterday. Electronically signed by: Donald Patiño M.D. 11/21/2017 1:18 PM Dictated Date/Time: 11/21/2017 1:16 PM
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
[2017-11-21] MEDS: GABAPENTIN 600 MG TAB PO SCH (20:56)
[2017-11-21] MEDS: PRAMIPEXOLE DIHYDROCHLORIDE 0.25MG TAB PO SCH (20:56)
[2017-11-21 22:24] LABS: CALCIUM 8.1 mg/dl (8.5-10.1); CREATININE 1.84 mg/dl (0.60-1.20)
[2017-11-21 22:25] LABS: POTASSIUM 4.5 mmol/L (3.5-5.1)
[2017-11-22] VITALS (17 sets, daily range): BP systolic 102–137; BP diastolic 47–62; PULSE 60–74; TEMP 36.3–36.9; O2SAT 91–99
[2017-11-22] MEDS: PIPERACILL/TAZOBAC IV 4.5 GM in DEXTROSE 5% 100ML IV SCH ×2 (00:41→08:01)
[2017-11-22 04:24] LABS: BASO % 0.1 %; BASO ABS # 0.01 K/uL (0-0.2); EOS % 0.2 %; EOS ABS # 0.02 K/uL (0-0.5); HEMATOCRIT 29.7 % (37-47); HEMOGLOBIN 9.5 g/dL (12.0-16.0); IG# 0.03 K/uL (0.00-0.02); LYMPH % 19.3 %; LYMPH ABS # 1.71 K/uL (1.2-3.4); MEAN CELL VOLUME 92.5 fL (80-100); MEAN CORPUSCULAR HEMOGLOBIN 29.6 pg (25-34); MEAN PLATELET VOLUME 9.5 fL (7.4-10.4); MONO % 10.1 %; PLATELET COUNT 253 K/uL (130-400); RED CELL DISTRIBUTION WIDTH CV 15.5 % (11.5-14.5); RED CELL DISTRIBUTION WIDTH SD 52.4 fL (36.4-46.3); WHITE BLOOD COUNT 8.87 K/uL (4.8-10.8)
[2017-11-22 04:44] LABS: CREATININE 1.86 mg/dl (0.60-1.20)
[2017-11-22] MEDS: LEVOTHYROXINE 50 MCG TAB PO SCH (05:56)
[2017-11-22] MEDS: ALBUT/IPRATROP 3MG/0.5MG NEB 3 ML VIAL INH SCH ×4 (07:05→19:42)
[2017-11-22] MEDS: CARVEDILOL 6.25 MG TAB PO SCH ×2 (07:46→21:05)
[2017-11-22] MEDS: ASPIRIN 81 MG ECTAB PO SCH (07:46)
[2017-11-22] MEDS: CEROVITE ADV FORMULA TAB PO SCH (07:47)
[2017-11-22] MEDS: ATORVASTATIN 20 MG TAB PO SCH (07:47)
[2017-11-22] MEDS: PANTOprazole SOD 40 MG TAB PO SCH (07:48)
[2017-11-22] MEDS: GABAPENTIN 300 MG CAP PO SCH ×3 (07:48→21:05)
[2017-11-22] MEDS: CHOLECALCIFEROL 1000 INTER.UNIT TAB PO SCH (07:48)
[2017-11-22] MEDS: INSULIN ASPART 100 UNITS/ML 3 ML PEN SC SCH ×4 (08:00→21:08)
[2017-11-22] MEDS: HEPARIN SOD 5000 UNIT/0.5 ML CARP SQ SCH ×2 (08:01→21:09)
--- NOTE | 2017-11-22 11:20 | Progress Note ---
Subjective Date of Service: Nov 22, 2017. Subjective Pt evaluation today including: conversation w/ patient, physical exam, chart review, lab review, review of studies, conversation w/ client relationship consultant (pulmonary), review of inpatient medication list Pain: l-spine - chronic, but worse than usual PO Intake: ate 100% breakfast Voiding: no voiding problems tele stable overnight feeling better a/o x 3 during the visit c/o mild pleuritic pain in b/l chest with large breaths denies dyspnea at rest or w/ exertion Review of Systems Constitutional: No fever Cardiac: + see HPI, + chest pain, No orthopnea, No PND Abdomen: + problem reported (had mild rectal discomfort w/ having bowel movement this am ), No pain Objective Vital Signs Date Time Temp Pulse Resp B/P (MAP) Pulse Ox O2 Delivery O2 Flow Rate FiO2 11/22/17 09:06 Nasal Cannula 2.0 11/22/17 08:05 36.5 61 16 137/53 (81) 96 Nasal Cannula 3.0 11/22/17 07:05 61 20 96 Nasal Cannula 4.0 11/22/17 04:00 BiPAP 45 11/22/17 03:17 36.5 60 22 119/48 (71) 94 BiPAP 45 11/22/17 00:25 36.9 62 21 102/51 (68) 96 BiPAP 45 11/21/17 23:59 BiPAP 45 11/21/17 20:00 93 BiPAP 11/21/17 19:32 36.5 68 18 103/51 (68) 93 BiPAP 11/21/17 18:57 65 95 45 11/21/17 18:56 65 22 95 BiPAP/CPAP 45 11/21/17 16:00 100 Nasal Cannula 4.0 11/21/17 15:10 36.4 64 20 170/76 (107) 100 Nasal Cannula 4.0 11/21/17 15:02 64 16 96 Nasal Cannula 4.0 11/21/17 12:24 36.7 58 16 116/47 (70) 92 Nasal Cannula 3.0 58 11/21/17 12:00 93 Nasal Cannula 3.0 11/21/17 11:14 54 16 91 Nasal Cannula 4.0 Physical Exam General Appearance: no apparent distress, + pertinent finding (lips dry) ENT: + pertinent finding (MM dry) Neck: no JVD, + pertinent finding (right IJ CVC clean, dry) Respiratory/Chest: no respiratory distress, no accessory muscle use, + decreased breath sounds (left base), + wheezing (b/l) Cardiovascular: regular rate, rhythm, no gallop, no murmur Abdomen: normal bowel sounds, non tender, soft, no organomegaly, + hernia ( reducible, midline; obese) Extremities: no pedal edema Neurologic/Psychiatric: alert, oriented x 3 Skin: no rash Laboratory Results Last 24 Hours Test 11/21/17 11:38 11/21/17 16:09 11/21/17 20:02 11/21/17 20:56 Arterial Blood pH 7.42 Arterial Blood Partial Pressure CO2 55 mmHg Arterial Blood Partial Pressure O2 70 mm/Hg Arterial Blood HCO3 34 mmol/L Arterial Blood Oxygen Saturation 91.9 % Arterial Blood Base Excess 8.5 mEq/L Arterial Blood Gas Delivery 4 L Bassam Test POS Bedside Glucose 182 mg/dl 268 mg/dl Sodium Level 139 mmol/L Potassium Level 4.5 mmol/L Chloride Level 100 mmol/L Carbon Dioxide Level 33 mmol/L Anion Gap 7.0 mmol/L Blood Urea Nitrogen 43 mg/dl Creatinine 1.84 mg/dl Est Creatinine Clear Calc Drug Dose 27.6 ml/min Estimated GFR () 30.3 Estimated GFR (Non- 26.2 BUN/Creatinine Ratio 23.6 Random Glucose 272 mg/dl Calcium Level 8.1 mg/dl Test 11/22/17 03:45 11/22/17 04:12 11/22/17 06:47 Stool Occult Blood NEGATIVE White Blood Count 8.87 K/uL Red Blood Count 3.21 M/uL Hemoglobin 9.5 g/dL Hematocrit 29.7 % Mean Corpuscular Volume 92.5 fL Mean Corpuscular Hemoglobin 29.6 pg Mean Corpuscular Hemoglobin Concent 32.0 g/dl Platelet Count 253 K/uL Mean Platelet Volume 9.5 fL Neutrophils (%) (Auto) 70.0 % Lymphocytes (%) (Auto) 19.3 % Monocytes (%) (Auto) 10.1 % Eosinophils (%) (Auto) 0.2 % Basophils (%) (Auto) 0.1 % Neutrophils # (Auto) 6.20 K/uL Lymphocytes # (Auto) 1.71 K/uL Monocytes # (Auto) 0.90 K/uL Eosinophils # (Auto) 0.02 K/uL Basophils # (Auto) 0.01 K/uL RDW Standard Deviation 52.4 fL RDW Coefficient of Variation 15.5 % Immature Granulocyte % (Auto) 0.3 % Immature Granulocyte # (Auto) 0.03 K/uL Sodium Level 140 mmol/L Potassium Level 4.0 mmol/L Chloride Level 102 mmol/L Carbon Dioxide Level 32 mmol/L Anion Gap 6.0 mmol/L Blood Urea Nitrogen 47 mg/dl Creatinine 1.86 mg/dl Est Creatinine Clear Calc Drug Dose 27.3 ml/min Estimated GFR () 29.9 Estimated GFR (Non- 25.8 BUN/Creatinine Ratio 25.0 Random Glucose 189 mg/dl Calcium Level 8.0 mg/dl Magnesium Level 2.2 mg/dl Bedside Glucose 158 mg/dl Assessment and Plan 72yo female - multiple medical problems - admitted to [facility] on with RLL pneumonia. Suffered hypoxic respiratory arrest requiring CPR on 11/13/17. Intubated, placed in ICU, and antibiotics broadened to cefepime/vancomycin due to worsening pneumonia ion imaging. 1. b/l pneumonia - day #5 of antibiotics at [facility], and day #12 including her stay at [facility]. Has been treated for possible aspiration pneumonia. Given her clinical improvement at [facility] I think we can transition her off broad-spectrum IV antibiotics to orals or simply stop. UCx, BCx, sputum culture, influenza negative at [facility] - will need to follow up on cultures there until finalized. 2. acute hypoxic respiratory failure 2nd to #2 - wean O2 as tolerated; may need formal 2-step O2 test prior to discharge. Does have b/l wheezing - unsure if cardiac in nature (ie CHF) vs asthma ( patient reports such). Cont nebs, pulmonary toilet. 3. suspected acute/chronic hypercapnic respiratory failure - due to obesity- hypoventilation syndrome / MOISES? Unable to tolerate CPAP/BIPAP in the past; has used night-time O2 at home. Again will need to assess ambulatory o2 needs at home. 4. metabolic encephalopathy - likely due to pneumonia, hypercarbia, etc. Improved today. 5. l-spine back pain - check x-rays, r/o compression fracture. 6. b/l pleural effusions s/p thoracentesis on right, 900cc of transudative fluid - likely due to CHF. 7. acute/chronic diastolic CHF - today appears on dry side with dry MM, laying flat in bed comfortably, BUN & Cr are up. Hold lasix. 8. asthma with exacerbation - steroids stopped by pulmonary. Cont nebs. 9. DVT proph - heparin BID. 10. pleuritic chest pain - 2nd to multiple rib fractures. Treat the pain. Pulmonary toilet. 11. access - right IJ - try to place peripheral IV(s) - then d/c central line. 12. rectal discomfort - RIGOBERTO deferred today; will need to assess with RIGOBERTO with nursing assistance. 13. anemia - H/H stable; s/p 2 units of PRBCs at [facility]. B12/folate wnl. Iron def - add ferrous sulfate. 14. moderate protein calorie malnutrition - add boost glucose control; MVI. 15. CAD s/p stent - statin, asa, coreg; hold ARB due to ISAAC. no ischemic sx's at this time. 16. CKD stage 3/4 - baseline Cr mid 1's; Cr today 1.8. Hold ARB and lasix. daily BMP. 17. T2DM - acceptable control w/ current insulin regimen. 18. hypothyroidism - compensated, cont synthroid. 19. GERD - PPI. 20. code status - level 1 full code; Radha - daughter - POA ( w/ dementia) 21. recent cardiopulmonary arrest - suspect it was hypoxia-induced - s/p cpr/ intubation - resolved. recovering. cont PT, OT progressing albeit slowly Continued [facility] stay due to: inadequate oral pain control, ambulation difficulties, multiple IV medications needed Discharge planning: uncertain
[2017-11-22] MEDS: BOOST GLUCOSE CONTROL PO SCH ×2 (13:10→21:03)
--- NOTE | 2017-11-22 13:53 | DIAGNOSTIC IMAGING REPORT ---
LUMBAR SPINE 2 OR 3 VIEWS HISTORY: 76 years-old Female l-spine pain, eval for compression fracture acute low back pain with clinical concern for compression fracture COMPARISON: CT abdomen and pelvis 11/18/2017 TECHNIQUE: 3 views of the lumbar spine FINDINGS: Calcified granulomas are again seen throughout the hepatic and splenic parenchyma. Soft tissues are unremarkable. Phleboliths of the pelvis are noted. The bones appear demineralized with moderate degenerative changes about the bilateral femoral acetabular joints and pubic symphysis. There is dextroscoliosis of the lumbar spine. No acute fracture or subluxation is identified. The lateral views are very limited secondary to crosstable technique, however no acute compression deformity is identified. Severe multilevel intervertebral disc space narrowing with endplate spurring and facet arthrosis appears unchanged from comparison CT of the abdomen 11/18/2017. Atherosclerosis of the aorta. IMPRESSION: 1. Limited study secondary to crosstable technique of the lateral films. No acute fracture or subluxation is identified. 2. Severe multilevel intervertebral disc space narrowing with endplate spurring and facet arthrosis. 3. Dextroscoliosis. 4. Prior granulomatous disease. The above report was generated using voice recognition software. It may contain grammatical, syntax or spelling errors. Electronically signed by: Luca Arora M.D. 11/22/2017 1:52 PM Dictated Date/Time: 11/22/2017 1:48 PM
[2017-11-22] MEDS ORDERED: PIPERACILL/TAZOBAC IV 3.375 GM in DEXTROSE 5% 100ML IV SCH (16:00)
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
[2017-11-22] MEDS: PRAMIPEXOLE DIHYDROCHLORIDE 0.25MG TAB PO SCH (21:05)
[2017-11-22] MEDS: GABAPENTIN 600 MG TAB PO SCH (21:06)
[2017-11-23] VITALS (12 sets, daily range): BP systolic 111–142; BP diastolic 45–83; PULSE 64–77; TEMP 36.5–36.6; O2SAT 90–99
[2017-11-23] MEDS: LEVOTHYROXINE 50 MCG TAB PO SCH (05:38)
[2017-11-23 07:06] LABS: CREATININE 2.05 mg/dl (0.60-1.20)
[2017-11-23] MEDS: ALBUT/IPRATROP 3MG/0.5MG NEB 3 ML VIAL INH SCH ×4 (07:09→19:15)
[2017-11-23] MEDS: BOOST GLUCOSE CONTROL PO SCH ×3 (07:49→17:19)
[2017-11-23] MEDS: ASPIRIN 81 MG ECTAB PO SCH (07:50)
[2017-11-23] MEDS: CARVEDILOL 6.25 MG TAB PO SCH ×2 (07:50→21:35)
[2017-11-23] MEDS: ATORVASTATIN 20 MG TAB PO SCH (07:50)
[2017-11-23] MEDS: GABAPENTIN 300 MG CAP PO SCH ×3 (07:51→21:35)
[2017-11-23] MEDS: CEROVITE ADV FORMULA TAB PO SCH (07:51)
[2017-11-23] MEDS: PANTOprazole SOD 40 MG TAB PO SCH (07:52)
[2017-11-23] MEDS: CHOLECALCIFEROL 1000 INTER.UNIT TAB PO SCH (07:52)
[2017-11-23] MEDS: HEPARIN SOD 5000 UNIT/0.5 ML CARP SQ SCH ×2 (07:55→21:33)
[2017-11-23] MEDS: INSULIN ASPART 100 UNITS/ML 3 ML PEN SC SCH ×4 (08:08→21:44)
[2017-11-23 09:03] LABS: HEMATOCRIT 31.2 % (37-47); HEMOGLOBIN 9.8 g/dL (12.0-16.0); MEAN CELL VOLUME 93.4 fL (80-100); MEAN CORPUSCULAR HEMOGLOBIN 29.3 pg (25-34); MEAN CORPUSCULAR HGB CONC 31.4 g/dl (32-36); MEAN PLATELET VOLUME 9.9 fL (7.4-10.4); PLATELET COUNT 280 K/uL (130-400); RED CELL DISTRIBUTION WIDTH CV 15.5 % (11.5-14.5); RED CELL DISTRIBUTION WIDTH SD 52.6 fL (36.4-46.3); WHITE BLOOD COUNT 10.95 K/uL (4.8-10.8)
[2017-11-23] MEDS: INSULIN GLARGINE SOLOSTAR 100 UNITS/ML 3 ML PEN SC SCH (10:46)
--- NOTE | 2017-11-23 11:46 | DIAGNOSTIC IMAGING REPORT ---
VIDEO SWALLOW HISTORY: Aspiration History of aspiration pneumonia TECHNIQUE: Video fluoroscopic evaluation of swallowing was performed in the AP and lateral projections by the speech pathology staff. The patient is fed nectar-thick and thin liquid barium, a barium coated wafer, and barium pudding. FLUOROSCOPY TIME: 2.3 minutes. COMPARISON STUDY: None. FINDINGS: There is normal hyoid excursion and epiglottic deflection. No significant penetration or aspiration identified. Swallowing function is within normal limits. Delayed mastication IMPRESSION: 1. No aspiration identified. 2. Please see the speech pathologist report for detailed findings and recommendations. The above report was generated using voice recognition software. It may contain grammatical, syntax or spelling errors. Electronically signed by: Stone Walker M.D. 11/23/2017 11:44 AM Dictated Date/Time: 11/23/2017 11:41 AM
[2017-11-23 12:01] LABS: CALCIUM 8.2 mg/dl (8.5-10.1); CREATININE 2.02 mg/dl (0.60-1.20); POTASSIUM 3.9 mmol/L (3.5-5.1)
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
--- NOTE | 2017-11-23 14:06 | Hospitalist Progress Note ---
Hospitalist Progress Note Date of Service Nov 23, 2017. (Lis Lopez ., BLANKAC) Subjective Pt evaluation today including: conversation w/ patient, physical exam, chart review, lab review, review of inpatient medication list Pain: None PO Intake: Tolerating PO diet Voiding: no voiding problems The patient reports feeling weak and fatigued. She complains of a clear, productive cough and wheezing. She also notes diarrhea. She states she is agreeable to BiPAP if it will make her better. The patient denies fevers, chills, sweats, chest pain, palpitations, claudication, shortness of breath, nausea, vomiting, abdominal pain, dysuria, hematuria, urinary retention, paralysis, weakness, numbness and tingling. Additional Comments: See HPI for pertinent positives and negatives. All other systems reviewed and negative. (Lis Lopez ., ALEISHA-C) Objective Vital Signs Date Time Temp Pulse Resp B/P (MAP) Pulse Ox O2 Delivery O2 Flow Rate FiO2 11/23/17 12:00 73 22 111/49 (69) 91 Nasal Cannula 2.0 11/23/17 08:57 99 Nasal Cannula 2.0 11/23/17 07:51 36.6 73 18 127/56 (79) 99 Room Air 11/23/17 07:10 72 20 93 Nasal Cannula 3.0 11/23/17 05:16 69 16 91 Nasal Cannula 2.0 11/23/17 04:00 Nasal Cannula 2.0 11/23/17 03:15 36.6 75 115/45 (68) 90 Nasal Cannula 2.0 11/22/17 23:59 Nasal Cannula 2.0 11/22/17 23:34 36.3 71 18 113/50 (71) 93 Nasal Cannula 2.0 11/22/17 20:00 94 Nasal Cannula 2.0 11/22/17 20:00 36.6 64 18 107/53 (71) 94 Nasal Cannula 2.0 11/22/17 19:42 67 20 91 Nasal Cannula 3.0 11/22/17 16:00 99 Nasal Cannula 2.0 11/22/17 15:23 74 20 97 Nasal Cannula 3.0 11/22/17 15:14 36.4 62 24 113/47 (69) 97 Nasal Cannula 2.0 (Lis Lopez PA-C) Physical Exam Notes: General appearance: +Obese. Well-developed, well-nourished, no apparent distress Head: Normocephalic, atraumatic Eyes: Normal inspection, PERRL, EOMI ENT: Normal ENT inspection, hearing grossly normal, pharynx normal Neck: Supple, no JVD, trachea midline Respiratory/Chest: +Decreased breath sounds, wheezing throughout. No respiratory distress Cardiovascular: Regular rate & rhythm, no gallop, no murmur Abdomen/GI: +RLQ mildly TTP. Normal bowel sounds, soft Extremities/Musculoskeletal: Normal inspection, no calf tenderness, no pedal edema Neurological/Psych: Alert, normal mood/affect, oriented x 3 Skin: Normal color, warm/dry, no rash (Lis Lopez ., ALEISHA-C) Laboratory Results Last 24 Hours Test 11/22/17 16:23 11/22/17 20:56 11/23/17 05:39 11/23/17 05:46 Bedside Glucose 281 mg/dl 199 mg/dl White Blood Count 10.95 K/uL Red Blood Count 3.34 M/uL Hemoglobin 9.8 g/dL Hematocrit 31.2 % Mean Corpuscular Volume 93.4 fL Mean Corpuscular Hemoglobin 29.3 pg Mean Corpuscular Hemoglobin Concent 31.4 g/dl RDW Standard Deviation 52.6 fL RDW Coefficient of Variation 15.5 % Platelet Count 280 K/uL Mean Platelet Volume 9.9 fL Random Glucose 197 mg/dl Creatinine 2.05 mg/dl Est Creatinine Clear Calc Drug Dose 25.1 ml/min Estimated GFR () 26.6 Estimated GFR (Non- 23.0 Test 11/23/17 07:22 11/23/17 10:39 11/23/17 11:58 Bedside Glucose 229 mg/dl 218 mg/dl Sodium Level 138 mmol/L Potassium Level 3.9 mmol/L Chloride Level 101 mmol/L Carbon Dioxide Level 31 mmol/L Anion Gap 6.0 mmol/L Blood Urea Nitrogen 58 mg/dl Creatinine 2.02 mg/dl Est Creatinine Clear Calc Drug Dose 25.5 ml/min Estimated GFR () 27.1 Estimated GFR (Non- 23.4 BUN/Creatinine Ratio 28.8 Random Glucose 211 mg/dl Calcium Level 8.2 mg/dl (Lis Lopez ., PA-C) Assessment and Plan 72 y/o female with a history of CAD, HTN, HLD, chronic diastolic CHF, asthma, DM II, CKD stage III-IV, hypothyroidism, and GERD who presents from [facility] with RLL pneumonia. Pt was intubated at OSH due to respiratory failure, extubated prior to transfer. Acute hypoxic respiratory failure secondary to worsening PNA, asthma exacerbation, underlying MOISES?--stable - Admit to tele for cardiac monitoring. No acute events overnight, pt in SR in with HR 60s-70s - O2 protocol - Completed course of IV abx - DuoNebs QID and q2 hrs PRN for SOB/wheezing - MRSA, UCx, BCx, sputum culture, influenza negative at [facility] - Consult pulmonary, appreciate recs: Pt with significant desaturation overnight qualifying for BiPAP. Continue BiPAP and 3L NC. Would recommend outpatient sleep study. Increased lethargy today likely due to not having BiPAP last night for overnight oximetry study. - Video swallow negative for aspiration - Speech therapy evaluate and treat: Regular diet with aspiration precautions. Alternate solids and liquids. Double swallow as needed. ISAAC on CKD stage III-IV -Baseline creatinine appears around 1.7 -Creatinine 2.05 on 11/23 -Hold Lasix and losartan Metabolic encephalopathy--improved, oriented x 3 -Improves w/BiPAP, somewhat more lethargic today as pt could not wear last night for overnight oximetry Lumbar pain--pt does not complain of this today -Lumbar spine x-ray shows severe multilevel disc narrowing, no acute fractures of subluxation Diarrhea -Check C. diff, recent abx CAD s/p stenting, HTN, HLD--stable - Continue Lipitor 40 mg daily, ASA 81 mg daily, Coreg 6.25 mg BID - Losartan and Lasix on hold due to ISAAC - ECHO on 11/15 w/ EF of 60% and grade I diastolic dysfunction Acute on chronic diastolic CHF--resolved -Bilateral pleural effusions likely due to CHF -Creatinine rising, hold Lasix DM II with peripheral neuropathy - Insulin sliding scale - Check BSGs q ac and qhs - Continue Gabapentin 300 mg TID and 600 mg HS - Check HgbA1c in am Hypothyroidism -Continue Synthroid 50 mcg daily DVT prophylaxis - Heparin 5000 units SC q12h Code Status -Level I, FULL RESUSCITATION STATUS Dispo -From home with family -PT/OT re-evaluate for placement, will likely need SNF (Lis Lopez ., PAVitaly) Attending Attestation - Pt seen/examined, chart reviewed, care plan d/w ALEISHA Lopez. I agree w/ the stephen components of her documentation. Pt quite lethargic during the visit. She ultimately did wake up, but was slow to do so, initially getting multiple orientation questions wrong (when asked the year she kept telling me "November"). Ultimately she volunteered that it was 2017. She c/o chest discomfort from her recent rib fractures. [facility] records reviewed - her cardiopulmonary arrest was on 11/14/17. I could not find a "code blue" synopsis form. From what I could read she had bradycardia, followed by asystole, then needed chest compressions and epi. Latter amount unknown. Lengthy of time without a pulse is not known. Intubated during the resuscitation. Records also indicate that for several months she has had lethargy spells along with hypothermia. Cortisol level per some of the documentation was "normal." Outpatient w/u was in progress for this issue prior to admission at [facility]. Tele overnight normal. Overnight oximetry study reviewed. VSS afebrile o2 sats low 90s on NC o2 gen - lethargic, eventually awakens neck - no JVD mouth - MM slightly dry heart - RRR, s1, s2, 1-2/6 systolic murmur RUSB/LLSB lungs - no wheeze, decreased BS bases, no rales abd - soft, NT ext - no edema neuro - strength 5/5 x 4 exts; no facial droop labs - Cr 2 Hb 9.8 A/P: 1. b/l pneumonia - clinically resolved. Completed 10+ days of IV abx. All abx have been d/c. 2. acute hypoxic respiratory failure 2nd to #2 - wean O2 as tolerated but may need continuous O2 at d/c; will need formal 2-step prior to discharge. 3. suspected acute/chronic hypercapnic respiratory failure - due to obesity- hypoventilation syndrome / MOISES? Unable to tolerate CPAP/BIPAP in the past but is using such now without difficulty. Will need at discharge given her overnight oximetry study results. 4. lethargy - chronic per records - due to hypercarbia/MOISES?? 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 Could she have had hypoxic event during her cardiopulmonary arrest leading to her acute lethargy? Will check MRI brain, r/o subacute stroke. 5. mild acute kidney injury in setting of CKD stage 3/4 - cont to hold lasix/ ARB. BMP am. 6. recent acute/chronic diastolic CHF - appears slightly dry at this point; hold lasix. Toño Brown MD (Toño Brown MD)
[2017-11-23] MEDS: GABAPENTIN 600 MG TAB PO SCH (21:36)
[2017-11-23] MEDS: PRAMIPEXOLE DIHYDROCHLORIDE 0.25MG TAB PO SCH (21:36)
--- NOTE | 2017-11-23 21:50 | DIAGNOSTIC IMAGING REPORT ---
MRI OF THE BRAIN WITHOUT IV CONTRAST CLINICAL HISTORY: Strokelike symptoms. COMPARISON STUDY: CT of the brain dated 11/17/2017. TECHNIQUE: MRI of the brain was performed utilizing various T1 and T2-weighted sequences in the axial, sagittal, and coronal planes. IV contrast was not administered for this examination. The examination is modestly degraded by motion artifact. FINDINGS: Brain parenchyma: There are age-related involutional changes noting mild subcortical and periventricular microangiopathic disease. There is no hemorrhage or mass effect. There is no restricted diffusion to suggest acute ischemia. Soto-white matter differentiation is preserved. No extra-axial fluid collection is seen. The cerebellar tonsils are normal in configuration. Ventricles, sulci, and cisterns: Prominent secondary to involutional change. Pituitary and sella: Partially empty sella is incidentally noted. Intracranial vasculature: Normal flow voids are maintained at the skull base. Orbits: The bony orbits are grossly intact. Orbital contents are normal in appearance. Sinuses and mastoids: There is a large right mastoid effusion. The left mastoid air cells and the paranasal sinuses are clear. Calvarium: Unremarkable. Cervical cord: Partially visualized cervical spinal cord is normal in morphology and signal intensity. IMPRESSION: 1. No acute intracranial abnormality. 2. Large right mastoid effusion. Electronically signed by: Donald Patiño M.D. 11/23/2017 9:49 PM Dictated Date/Time: 11/23/2017 9:46 PM
[2017-11-24] VITALS (11 sets, daily range): BP systolic 112–143; BP diastolic 48–71; PULSE 64–75; TEMP 36.6–36.9; O2SAT 91–96
[2017-11-24] MEDS: ACETAMINOPHEN 325 MG TAB PO PRN (01:37)
[2017-11-24 05:53] LABS: HEMOGLOBIN 9.2 g/dL (12.0-16.0); MEAN CELL VOLUME 93.2 fL (80-100); MEAN CORPUSCULAR HEMOGLOBIN 29.6 pg (25-34); MEAN CORPUSCULAR HGB CONC 31.7 g/dl (32-36); MEAN PLATELET VOLUME 9.7 fL (7.4-10.4); PLATELET COUNT 237 K/uL (130-400); RED CELL DISTRIBUTION WIDTH CV 15.8 % (11.5-14.5); RED CELL DISTRIBUTION WIDTH SD 53.5 fL (36.4-46.3); WHITE BLOOD COUNT 10.83 K/uL (4.8-10.8)
[2017-11-24] MEDS: LEVOTHYROXINE 50 MCG TAB PO SCH (06:14)
[2017-11-24 06:30] LABS: CALCIUM 8.4 mg/dl (8.5-10.1); CREATININE 1.82 mg/dl (0.60-1.20); POTASSIUM 3.9 mmol/L (3.5-5.1)
[2017-11-24 06:33] LABS: PHOSPHORUS 3.3 mg/dl (2.5-4.9)
[2017-11-24] MEDS: ALBUT/IPRATROP 3MG/0.5MG NEB 3 ML VIAL INH SCH ×4 (06:49→19:38)
[2017-11-24 07:43] LABS: HEMOGLOBIN A1C 6.2 % (4.5-5.6)
[2017-11-24] MEDS: PANTOprazole SOD 40 MG TAB PO SCH (07:43)
[2017-11-24] MEDS: CEROVITE ADV FORMULA TAB PO SCH (07:43)
[2017-11-24] MEDS: CHOLECALCIFEROL 1000 INTER.UNIT TAB PO SCH (07:44)
[2017-11-24] MEDS: ATORVASTATIN 20 MG TAB PO SCH (07:44)
[2017-11-24] MEDS: CARVEDILOL 6.25 MG TAB PO SCH ×2 (07:44→20:00)
[2017-11-24] MEDS: ASPIRIN 81 MG ECTAB PO SCH (07:44)
[2017-11-24] MEDS: INSULIN ASPART 100 UNITS/ML 3 ML PEN SC SCH ×4 (07:47→21:36)
[2017-11-24] MEDS: BOOST GLUCOSE CONTROL PO SCH ×3 (07:51→17:49)
[2017-11-24] MEDS: INSULIN GLARGINE SOLOSTAR 100 UNITS/ML 3 ML PEN SC SCH (07:52)
[2017-11-24] MEDS: HEPARIN SOD 5000 UNIT/0.5 ML CARP SQ SCH ×2 (07:52→21:36)
[2017-11-24] MEDS ORDERED: NURSING VERBAL MED ORDER ONE (11:15)
[2017-11-24] MEDS: THIAMINE HCL 100 MG TAB PO SCH (12:34)
[2017-11-24] MEDS ORDERED: LOPERAMIDE HCL 2 MG CAP PO PRN (13:45)
--- NOTE | 2017-11-24 14:01 | Hospitalist Progress Note ---
Hospitalist Progress Note Date of Service Nov 24, 2017. (Lis Lopez ., BLANKAC) Subjective Pt evaluation today including: conversation w/ patient, physical exam, chart review, lab review, review of studies, review of inpatient medication list Pain: None PO Intake: Tolerating PO diet Voiding: dotson catheter in place Patient reports feeling better. Per nursing, more alert today. She notes that she is very weak in general. She still complains of diarrhea, although there are only 2 reported BMs from yesterday. She complains of a productive cough and some intermittent wheezing. The patient denies fevers, chills, sweats, chest pain, palpitations, claudication, shortness of breath, nausea, vomiting, abdominal pain, dysuria, hematuria, urinary retention, paralysis, focal motor weakness, numbness and tingling. Additional Comments: See HPI for pertinent positives and negatives. All other systems reviewed and negative. (Lis Lopez ., PA-C) Objective Vital Signs Date Time Temp Pulse Resp B/P (MAP) Pulse Ox O2 Delivery O2 Flow Rate FiO2 11/24/17 12:16 36.7 69 23 127/48 (74) 92 Nasal Cannula 2.0 11/24/17 12:00 Nasal Cannula 2.0 11/24/17 08:00 Nasal Cannula 2.0 11/24/17 07:44 36.6 70 19 143/65 (91) 93 BiPAP 30 70 11/24/17 06:49 70 94 30 11/24/17 06:49 70 23 94 BiPAP/CPAP 30 11/24/17 05:41 36.6 71 19 120/55 (76) 95 Nasal Cannula 2.0 11/24/17 04:00 BiPAP 45 11/24/17 00:00 36.9 66 26 112/55 (74) 91 BiPAP 11/24/17 00:00 BiPAP 45 11/23/17 22:00 64 96 30 11/23/17 20:00 Nasal Cannula 2.0 11/23/17 19:17 65 16 96 Nasal Cannula 2.0 11/23/17 18:53 36.5 71 20 122/83 (96) 93 Nasal Cannula 2.0 11/23/17 16:00 Nasal Cannula 2.0 11/23/17 15:28 67 93 45 11/23/17 15:27 67 17 93 BiPAP/CPAP 45 11/23/17 14:59 36.5 77 18 142/55 (84) 95 BiPAP (Lis Lopez ., PA-C) Physical Exam Notes: General appearance: +Obese. Well-developed, well-nourished, no apparent distress Head: Normocephalic, atraumatic Eyes: Normal inspection, PERRL, EOMI ENT: Normal ENT inspection, hearing grossly normal, pharynx normal Neck: Supple, no JVD, trachea midline Respiratory/Chest: +Decreased breath sounds. Lungs clear to auscultation, no respiratory distress Cardiovascular: Regular rate & rhythm, no gallop, no murmur Abdomen/GI: Normal bowel sounds, non-tender, soft Extremities/Musculoskeletal: Normal inspection, no calf tenderness, no pedal edema Neurological/Psych: Alert, normal mood/affect, oriented x 3 Skin: Normal color, warm/dry, no rash (Lis Lopez ., PA-C) Laboratory Results Last 24 Hours Test 11/23/17 16:25 11/23/17 20:23 11/24/17 05:40 11/24/17 06:45 Bedside Glucose 132 mg/dl 202 mg/dl 127 mg/dl White Blood Count 10.83 K/uL Red Blood Count 3.11 M/uL Hemoglobin 9.2 g/dL Hematocrit 29.0 % Mean Corpuscular Volume 93.2 fL Mean Corpuscular Hemoglobin 29.6 pg Mean Corpuscular Hemoglobin Concent 31.7 g/dl RDW Standard Deviation 53.5 fL RDW Coefficient of Variation 15.8 % Platelet Count 237 K/uL Mean Platelet Volume 9.7 fL Sodium Level 139 mmol/L Potassium Level 3.9 mmol/L Chloride Level 102 mmol/L Carbon Dioxide Level 33 mmol/L Anion Gap 5.0 mmol/L Blood Urea Nitrogen 56 mg/dl Creatinine 1.82 mg/dl Est Creatinine Clear Calc Drug Dose 29.0 ml/min Estimated GFR () 30.7 Estimated GFR (Non- 26.5 BUN/Creatinine Ratio 30.9 Random Glucose 137 mg/dl Estimated Average Glucose 131 mg/dl Hemoglobin A1c 6.2 % Calcium Level 8.4 mg/dl Phosphorus Level 3.3 mg/dl Magnesium Level 2.3 mg/dl Total Creatine Kinase 31 U/L Test 3/15/18 11:09 Bedside Glucose 208 mg/dl (Lis Lopez ., ALEISHA-C) Diagnostic Results Reviewed the following studies and agree with interpretation as follows: MRI OF THE BRAIN WITHOUT IV CONTRAST CLINICAL HISTORY: Strokelike symptoms. COMPARISON STUDY: CT of the brain dated 11/17/2017. TECHNIQUE: MRI of the brain was performed utilizing various T1 and T2-weighted sequences in the axial, sagittal, and coronal planes. IV contrast was not administered for this examination. The examination is modestly degraded by motion artifact. FINDINGS: Brain parenchyma: There are age-related involutional changes noting mild subcortical and periventricular microangiopathic disease. There is no hemorrhage or mass effect. There is no restricted diffusion to suggest acute ischemia. Soto-white matter differentiation is preserved. No extra-axial fluid collection is seen. The cerebellar tonsils are normal in configuration. Ventricles, sulci, and cisterns: Prominent secondary to involutional change. Pituitary and sella: Partially empty sella is incidentally noted. Intracranial vasculature: Normal flow voids are maintained at the skull base. Orbits: The bony orbits are grossly intact. Orbital contents are normal in appearance. Sinuses and mastoids: There is a large right mastoid effusion. The left mastoid air cells and the paranasal sinuses are clear. Calvarium: Unremarkable. Cervical cord: Partially visualized cervical spinal cord is normal in morphology and signal intensity. IMPRESSION: 1. No acute intracranial abnormality. 2. Large right mastoid effusion. (Lis Lopez ., PA-C) Assessment and Plan 72 y/o female with a history of CAD, HTN, HLD, chronic diastolic CHF, asthma, DM II, CKD stage III-IV, hypothyroidism, and GERD who presents from [facility] with RLL pneumonia. Pt was intubated at OSH due to respiratory failure, extubated prior to transfer. Acute hypoxic respiratory failure secondary to worsening PNA, asthma exacerbation, underlying MOISES?--improving - Admit to tele for cardiac monitoring. No acute events overnight, pt in SR in with HR 60s-70s. Tele has remained stable, will transfer to med/surg while awaiting placement - O2 protocol - Completed course of IV abx - DuoNebs QID and q2 hrs PRN for SOB/wheezing - MRSA, UCx, BCx, sputum culture, influenza negative at [facility] - Consult pulmonary, appreciate recs: Pt with significant desaturation overnight qualifying for BiPAP. Continue BiPAP and 3L NC. Would recommend outpatient sleep study. - Video swallow negative for aspiration - Speech therapy evaluate and treat: Regular diet with aspiration precautions. Alternate solids and liquids. Double swallow as needed. ISAAC on CKD stage III-IV--improving -Baseline creatinine appears around 1.7 -Creatinine 1.82 on 11/24, down from 2.02 -Hold Lasix and losartan Metabolic encephalopathy/lethargy--improved, oriented x 3 -Improves w/BiPAP -Ongoing issues with lethargy -Partially empty sella on MRI. Will work up pituitary with cosyntropin stim test, ACTH, prolactin, LH, FSH levels -Hold gabapentin as may contribute to lethargy Lumbar pain--pt does not complain of this today -Lumbar spine x-ray shows severe multilevel disc narrowing, no acute fractures of subluxation Diarrhea--improving -C. diff negative -Imodium prn CAD s/p stenting, HTN, HLD--stable - Continue Lipitor 40 mg daily, ASA 81 mg daily, Coreg 6.25 mg BID - Losartan and Lasix on hold due to ISAAC - ECHO on 11/15 w/ EF of 60% and grade I diastolic dysfunction Acute on chronic diastolic CHF--resolved -Bilateral pleural effusions likely due to CHF -Creatinine rising, hold Lasix DM II with peripheral neuropathy - Insulin sliding scale - Check BSGs q ac and qhs - Gabapentin on hold - HgbA1c 6.2 Hypothyroidism -Continue Synthroid 50 mcg daily DVT prophylaxis - Heparin 5000 units SC q12h Code Status -Level I, FULL RESUSCITATION STATUS Dispo -From home with family -PT/OT re-evaluate for placement, will likely need SNF (Lis Lopez ., PA-C) Attending Attestation - Pt seen/examined, chart reviewed, care plan d/w ALEISHA Lopez. I agree w/ the stephen components of her documentation. Pt very awake today. Mentions numerous psychosocial stressors in her life - with bladder ca, daughter & her 2 kids live with them, etc. Admits to depression/anxiety. No other events. Still requiring O2. VSS afebrile gen - a/o x 3, very sharp today neck - no JVD mouth - MMM heart - RRR, s1, s2, 1-2/6 systolic murmur RUSB/LLSB lungs - no wheeze, no rales, decreased BS bases abd - soft, NT ext - no edema labs - Cr 1.8 MRI brain - partially empty sella, otherwise no stroke A/P: 1. b/l pneumonia - clinically resolved. Completed 10+ days of IV abx. All abx have been d/c. 2. acute hypoxic respiratory failure 2nd to #2 - may need formal 2-step prior to discharge. 3. suspected acute/chronic hypercapnic respiratory failure - due to obesity- hypoventilation syndrome / MOISES? Unable to tolerate CPAP/BIPAP in the past but is using such now without difficulty. Will need at discharge given her overnight oximetry study results. She clearly is worse from a mental standpoint when she does not use night-time CPAP. 4. lethargy - chronic per records - due to hypercarbia/MOISES?? 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 MRI w/o structural issue, stroke etc although there is a partially empty sella. Will check pituitary hormones & perform a cosyntropin stim test to r/o obando- hypopituitarism. 5. mild acute kidney injury in setting of CKD stage 3/4 - cont to hold lasix/ ARB. BMP am. Cr slowly improving. 6. recent acute/chronic diastolic CHF - acute component resolved; lasix on hold due to #5. Toño Brown MD (Toño Brown MD)
[2017-11-24] MEDS ORDERED: SERTRALINE HCL 50 MG TAB PO ONE (16:00)
[2017-11-24] MEDS ORDERED: MICONAZOLE NITRATE POWDER 43 GM EXT PRN (19:30)
[2017-11-24] MEDS: PRAMIPEXOLE DIHYDROCHLORIDE 0.25MG TAB PO SCH (21:25)
[2017-11-25] VITALS (10 sets, daily range): BP systolic 126–169; BP diastolic 66–85; PULSE 54–98; TEMP 36.4–36.6; O2SAT 91–99
[2017-11-25] MEDS: HYDROmorphone INJ 0.5 MG/0.5 ML SYR IV PRN ×4 (01:05→20:54)
[2017-11-25] MEDS: LEVOTHYROXINE 50 MCG TAB PO SCH (06:17)
[2017-11-25] MEDS ORDERED: COSYNTROPIN INJ 1 MCG in SYRINGE 0 ML IV ONE (07:00)
[2017-11-25] MEDS: ALBUT/IPRATROP 3MG/0.5MG NEB 3 ML VIAL INH SCH ×4 (07:11→19:25)
[2017-11-25] MEDS ORDERED: COSYNTROPIN INJ 0.25 MCG in SYRINGE 4 ML IV ONE (08:00)
[2017-11-25] MEDS: CARVEDILOL 6.25 MG TAB PO SCH ×2 (08:00→20:41)
[2017-11-25 08:47] LABS: HEMATOCRIT 29.7 % (37-47); HEMOGLOBIN 9.6 g/dL (12.0-16.0); MEAN CELL VOLUME 92.2 fL (80-100); MEAN CORPUSCULAR HEMOGLOBIN 29.8 pg (25-34); MEAN CORPUSCULAR HGB CONC 32.3 g/dl (32-36); PLATELET COUNT 246 K/uL (130-400); RED CELL DISTRIBUTION WIDTH CV 15.6 % (11.5-14.5); RED CELL DISTRIBUTION WIDTH SD 52.5 fL (36.4-46.3); WHITE BLOOD COUNT 10.68 K/uL (4.8-10.8)
[2017-11-25 09:21] LABS: CALCIUM 8.9 mg/dl (8.5-10.1); CREATININE 1.43 mg/dl (0.60-1.20); POTASSIUM 4.2 mmol/L (3.5-5.1)
[2017-11-25 09:30] LABS: LUTEINIZING HORMONE 8.57 IU/L; PROLACTIN 1.62 ng/mL
[2017-11-25 09:31] LABS: FOLLICLE STIMULAT HORMONE 8.44 IU/L
[2017-11-25] MEDS: BOOST GLUCOSE CONTROL PO SCH ×3 (10:39→17:00)
[2017-11-25] MEDS: INSULIN ASPART 100 UNITS/ML 3 ML PEN SC SCH ×4 (10:39→20:44)
[2017-11-25] MEDS: PANTOprazole SOD 40 MG TAB PO SCH (10:40)
[2017-11-25] MEDS: ASPIRIN 81 MG ECTAB PO SCH (10:40)
[2017-11-25] MEDS: CHOLECALCIFEROL 1000 INTER.UNIT TAB PO SCH (10:40)
[2017-11-25] MEDS: THIAMINE HCL 100 MG TAB PO SCH (10:40)
[2017-11-25] MEDS: CEROVITE ADV FORMULA TAB PO SCH (10:40)
[2017-11-25] MEDS: ATORVASTATIN 20 MG TAB PO SCH (10:41)
[2017-11-25] MEDS: SERTRALINE HCL 50 MG TAB PO SCH (10:41)
[2017-11-25] MEDS: INSULIN GLARGINE SOLOSTAR 100 UNITS/ML 3 ML PEN SC SCH (10:47)
[2017-11-25] MEDS: HEPARIN SOD 5000 UNIT/0.5 ML CARP SQ SCH ×2 (10:47→20:45)
--- NOTE | 2017-11-25 16:07 | Hospitalist Progress Note ---
Hospitalist Progress Note Date of Service Nov 25, 2017. (Lis Lopez ., MOR) Subjective Pt evaluation today including: conversation w/ patient, physical exam, chart review, lab review, review of inpatient medication list Patient reports feeling well, looks more alert today. She complains of some rib pain due to her rib fractures. She also still has a productive cough. She otherwise is feeling well. The patient denies fevers, chills, sweats, chest pain, palpitations, claudication, wheezing, shortness of breath, nausea, vomiting, abdominal pain, dysuria, hematuria, urinary retention, paralysis, weakness, numbness and tingling. Additional Comments: See HPI for pertinent positives and negatives. All other systems reviewed and negative. (Lis Lopez ., MOR) Objective Vital Signs Date Time Temp Pulse Resp B/P (MAP) Pulse Ox O2 Delivery O2 Flow Rate FiO2 11/25/17 11:15 84 16 98 Nasal Cannula 2.0 11/25/17 08:30 99 Nasal Cannula 2.0 11/25/17 08:17 56 20 169/85 (113) 99 11/25/17 07:11 54 16 98 Nasal Cannula 2.0 11/25/17 00:02 36.6 98 16 134/83 (100) 93 CPAP 11/25/17 00:00 Nasal Cannula 2.0 11/24/17 22:19 72 95 30 11/24/17 19:38 68 16 93 Nasal Cannula 2.0 11/24/17 16:00 Nasal Cannula 2.0 11/24/17 15:30 36.7 64 16 121/71 (88) 96 Nasal Cannula 2.0 11/24/17 15:08 36.7 68 23 93 2.0 11/24/17 14:51 68 23 93 Nasal Cannula 2.0 (Lis Lopez .BLANKAC) Physical Exam Notes: General appearance: +Obese. Well-developed, well-nourished, no apparent distress Head: Normocephalic, atraumatic Eyes: Normal inspection, PERRL, EOMI ENT: Normal ENT inspection, hearing grossly normal, pharynx normal Neck: Supple, no JVD, trachea midline Respiratory/Chest: +Decreased breath sounds. Lungs clear to auscultation, no respiratory distress Cardiovascular: Regular rate & rhythm, no gallop, no murmur Abdomen/GI: Normal bowel sounds, non-tender, soft Extremities/Musculoskeletal: Normal inspection, no calf tenderness, no pedal edema Neurological/Psych: Alert, normal mood/affect, oriented x 3 Skin: Normal color, warm/dry, no rash (Lis Lopez ., PA-C) Laboratory Results Last 24 Hours Test 11/24/17 17:11 11/24/17 21:07 11/25/17 07:50 11/25/17 08:29 Bedside Glucose 137 mg/dl 173 mg/dl 133 mg/dl White Blood Count 10.68 K/uL Red Blood Count 3.22 M/uL Hemoglobin 9.6 g/dL Hematocrit 29.7 % Mean Corpuscular Volume 92.2 fL Mean Corpuscular Hemoglobin 29.8 pg Mean Corpuscular Hemoglobin Concent 32.3 g/dl RDW Standard Deviation 52.5 fL RDW Coefficient of Variation 15.6 % Platelet Count 246 K/uL Mean Platelet Volume 10.0 fL Sodium Level 140 mmol/L Potassium Level 4.2 mmol/L Chloride Level 102 mmol/L Carbon Dioxide Level 34 mmol/L Anion Gap 4.0 mmol/L Blood Urea Nitrogen 45 mg/dl Creatinine 1.43 mg/dl Est Creatinine Clear Calc Drug Dose 36.9 ml/min Estimated GFR () 41.1 Estimated GFR (Non- 35.5 BUN/Creatinine Ratio 31.7 Random Glucose 148 mg/dl Calcium Level 8.9 mg/dl Free Thyroxine 1.34 ng/dl Follicle Stimulating Hormone 8.44 IU/L Luteinizing Hormone 8.57 IU/L Prolactin 1.62 ng/mL Cortisol Response to Stimulation Cortisol Baseline Test 11/25/17 11:13 Bedside Glucose 130 mg/dl (Lis Lopez ., PA-C) Assessment and Plan 72 y/o female with a history of CAD, HTN, HLD, chronic diastolic CHF, asthma, DM II, CKD stage III-IV, hypothyroidism, and GERD who presents from [facility] with RLL pneumonia. Pt was intubated at OSH due to respiratory failure, extubated prior to transfer. Acute hypoxic respiratory failure secondary to worsening PNA, asthma exacerbation, underlying MOISES?--improving - Admit to tele for cardiac monitoring. No acute events overnight, pt in SR in with HR 60s-70s. Tele has remained stable, will transfer to med/surg while awaiting placement - O2 protocol - Completed course of IV abx - DuoNebs QID and q2 hrs PRN for SOB/wheezing - MRSA, UCx, BCx, sputum culture, influenza negative at [facility] - Consult pulmonary, appreciate recs: Pt with significant desaturation overnight qualifying for BiPAP. Continue BiPAP and 3L NC. Would recommend outpatient sleep study. - Video swallow negative for aspiration - Speech therapy evaluate and treat: Regular diet with aspiration precautions. Alternate solids and liquids. Double swallow as needed. ISAAC on CKD stage III-IV--improving -Baseline creatinine appears around 1.7 -Creatinine 1.43 on 11/25, down from 1.82 -Hold Lasix and losartan Metabolic encephalopathy/lethargy--improved, oriented x 3 -Improves w/BiPAP -Ongoing issues with lethargy -Partially empty sella on MRI -Cosyntropin stim test normal, prolactin, LH and FSH WNL. TSH and free T4 WNL, pt on Synthroid -Hold gabapentin as may contribute to lethargy Lumbar pain--pt does not complain of this today -Lumbar spine x-ray shows severe multilevel disc narrowing, no acute fractures of subluxation Diarrhea--resolved -C. diff negative -Imodium prn CAD s/p stenting, HTN, HLD--stable - Continue Lipitor 40 mg daily, ASA 81 mg daily, Coreg 6.25 mg BID - Losartan and Lasix on hold due to ISAAC - ECHO on 11/15 w/ EF of 60% and grade I diastolic dysfunction Acute on chronic diastolic CHF--resolved -Bilateral pleural effusions likely due to CHF -Creatinine rising, hold Lasix DM II with peripheral neuropathy - Insulin sliding scale - Check BSGs q ac and qhs - Gabapentin on hold - HgbA1c 6.2 Hypothyroidism -Continue Synthroid 50 mcg daily DVT prophylaxis - Heparin 5000 units SC q12h Code Status -Level I, FULL RESUSCITATION STATUS Dispo -From home with family -PT/OT re-evaluate for placement, will likely need SNF. Referrals to [facility] and [facility] swing bed unit. Insurance auth for [facility] pending (Lis Lopez ., PAVitaly) Attending Attestation - Pt seen/examined, chart reviewed, care plan d/w ALEISHA Lopez. I agree w/ the stephen components of her documentation. Pt very lethargic when I arrived. After a minute she awoke and was able to carry on normal conversation. Was a/o x 3. Had no complaints. VSS afebrile gen - a/o x 3 neck - no JVD mouth - MMM heart - RRR, s1, s2, 1-2/6 systolic murmur RUSB/LLSB lungs - no wheeze, no rales, CTA b/l abd - soft, NT, hernia - reducible - midline ext - no edema labs - Cr 1.4 LH, FSH low; prolactin low; cosyntropin stim test wnl; free T4 wnl A/P: 1. b/l pneumonia - clinically resolved. Completed 10+ days of IV abx. All abx have been d/c. 2. acute hypoxic respiratory failure 2nd to #2 - improved; will need NC O2 during the day at d/c. 3. suspected acute/chronic hypercapnic respiratory failure - due to obesity- hypoventilation syndrome / MOISES? Unable to tolerate CPAP/BIPAP in the past but is using such now without difficulty. Will need at discharge given her overnight oximetry study results. She clearly is worse from a mental standpoint when she does not use night-time CPAP. 4. lethargy - chronic per records - due to hypercarbia/MOISES?? 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 MRI w/o structural issue, stroke etc although there is a partially empty sella. I suspect she has some element of hypopit - FSH/LH are low; these should be high as she is post menopausal; prolactin is low. She is already on synthroid but FT4 is wnl. Await ACTH level. Unsure if this issue is contributing to lethargy. 5. mild acute kidney injury in setting of CKD stage 3/4 - cont to hold lasix/ ARB. Cr continues to improve. 6. recent acute/chronic diastolic CHF - acute component resolved; lasix on hold due to #5. probably can resume lasix tomorrow. [facility] at Lucero Brown MD (Toño Brown MD)
[2017-11-25] MEDS: PRAMIPEXOLE DIHYDROCHLORIDE 0.25MG TAB PO SCH (20:41)
[2017-11-26] VITALS (10 sets, daily range): BP systolic 103–155; BP diastolic 58–85; PULSE 63–88; TEMP 36.4–36.8; O2SAT 90–100
[2017-11-26] MEDS: HYDROmorphone INJ 0.5 MG/0.5 ML SYR IV PRN (02:18)
[2017-11-26] MEDS: LEVOTHYROXINE 50 MCG TAB PO SCH (05:47)
[2017-11-26] MEDS: ALBUT/IPRATROP 3MG/0.5MG NEB 3 ML VIAL INH SCH ×4 (06:55→18:52)
[2017-11-26 07:00] LABS: HEMATOCRIT 29.9 % (37-47); HEMOGLOBIN 9.5 g/dL (12.0-16.0); MEAN CELL VOLUME 92.9 fL (80-100); MEAN CORPUSCULAR HEMOGLOBIN 29.5 pg (25-34); MEAN CORPUSCULAR HGB CONC 31.8 g/dl (32-36); MEAN PLATELET VOLUME 10.1 fL (7.4-10.4); PLATELET COUNT 223 K/uL (130-400); RED CELL DISTRIBUTION WIDTH CV 15.7 % (11.5-14.5); RED CELL DISTRIBUTION WIDTH SD 52.9 fL (36.4-46.3); WHITE BLOOD COUNT 9.59 K/uL (4.8-10.8)
[2017-11-26 07:18] LABS: CALCIUM 8.6 mg/dl (8.5-10.1); CREATININE 1.28 mg/dl (0.60-1.20); POTASSIUM 4.6 mmol/L (3.5-5.1)
[2017-11-26] MEDS: CARVEDILOL 6.25 MG TAB PO SCH ×2 (09:01→19:27)
[2017-11-26] MEDS: THIAMINE HCL 100 MG TAB PO SCH (09:01)
[2017-11-26] MEDS: SERTRALINE HCL 50 MG TAB PO SCH (09:01)
[2017-11-26] MEDS: CHOLECALCIFEROL 1000 INTER.UNIT TAB PO SCH (09:01)
[2017-11-26] MEDS: CEROVITE ADV FORMULA TAB PO SCH (09:01)
[2017-11-26] MEDS: PANTOprazole SOD 40 MG TAB PO SCH (09:01)
[2017-11-26] MEDS: ASPIRIN 81 MG ECTAB PO SCH (09:02)
[2017-11-26] MEDS: ATORVASTATIN 20 MG TAB PO SCH (09:02)
[2017-11-26] MEDS: BOOST GLUCOSE CONTROL PO SCH ×3 (09:03→17:28)
[2017-11-26] MEDS: INSULIN ASPART 100 UNITS/ML 3 ML PEN SC SCH ×4 (09:10→20:18)
[2017-11-26] MEDS: HEPARIN SOD 5000 UNIT/0.5 ML CARP SQ SCH ×2 (09:11→21:13)
[2017-11-26] MEDS: INSULIN GLARGINE SOLOSTAR 100 UNITS/ML 3 ML PEN SC SCH (09:11)
[2017-11-26] MEDS: ACETAMINOPHEN 325 MG TAB PO PRN (09:17)
[2017-11-26] MEDS: ONDANSETRON INJ 2 MG/ML 2 ML VIAL IV PRN ×2 (12:55→22:52)
[2017-11-26] MEDS ORDERED: BUMETANIDE 1 MG TAB PO ONE (19:00)
--- NOTE | 2017-11-26 21:09 | Progress Note ---
Subjective Date of Service: Nov 26, 2017. Subjective Pt evaluation today including: conversation w/ patient, conversation w/ family (daughter, - at bedside), physical exam, chart review, lab review, review of inpatient medication list Pain: denies PO Intake: has improved Voiding: no voiding problems patient feeling good today she is aware that [facility] she is ok with going to [facility] for subacute rehab there c/o very mild wheeze today Review of Systems Constitutional: No fever Respiratory: + wheezing, No cough, No dyspnea at rest Cardiac: No chest pain, No orthopnea Abdomen: No pain Objective Vital Signs Date Time Temp Pulse Resp B/P (MAP) Pulse Ox O2 Delivery O2 Flow Rate FiO2 11/26/17 19:26 76 109/58 (75) 11/26/17 18:54 74 16 94 Nasal Cannula 2.0 11/26/17 16:00 Nasal Cannula 2.0 11/26/17 15:30 36.7 69 20 103/63 (76) 92 Nasal Cannula 2.0 11/26/17 14:39 88 16 90 Nasal Cannula 2.0 11/26/17 11:19 72 16 95 Nasal Cannula 3.0 11/26/17 08:10 Nasal Cannula 2.0 11/26/17 07:31 36.5 65 16 155/85 (108) 100 11/26/17 06:58 63 16 97 Nasal Cannula 4.0 11/26/17 00:30 36.4 65 20 130/70 (90) 94 2.0 11/26/17 00:30 Nasal Cannula 2.0 11/25/17 22:18 67 94 30 Physical Exam General Appearance: no apparent distress ENT: pharynx normal Neck: no JVD Respiratory/Chest: no respiratory distress, no accessory muscle use, + wheezing (mild, b/l ), + pertinent finding (decreased BS bases) Cardiovascular: regular rate, rhythm, no gallop Abdomen: normal bowel sounds, non tender, soft, no organomegaly, + hernia ( midline - reducible) Extremities: no pedal edema Neurologic/Psychiatric: alert, oriented x 3, + pertinent finding (very awake today) Skin: no rash, + pertinent finding (mild fingernail clubbing) Laboratory Results Last 24 Hours Test 11/26/17 06:37 11/26/17 07:23 11/26/17 11:26 11/26/17 16:21 White Blood Count 9.59 K/uL Red Blood Count 3.22 M/uL Hemoglobin 9.5 g/dL Hematocrit 29.9 % Mean Corpuscular Volume 92.9 fL Mean Corpuscular Hemoglobin 29.5 pg Mean Corpuscular Hemoglobin Concent 31.8 g/dl RDW Standard Deviation 52.9 fL RDW Coefficient of Variation 15.7 % Platelet Count 223 K/uL Mean Platelet Volume 10.1 fL Sodium Level 139 mmol/L Potassium Level 4.6 mmol/L Chloride Level 102 mmol/L Carbon Dioxide Level 34 mmol/L Anion Gap 3.0 mmol/L Blood Urea Nitrogen 42 mg/dl Creatinine 1.28 mg/dl Est Creatinine Clear Calc Drug Dose 41.2 ml/min Estimated GFR () 47.0 Estimated GFR (Non- 40.6 BUN/Creatinine Ratio 32.5 Random Glucose 99 mg/dl Calcium Level 8.6 mg/dl Bedside Glucose 98 mg/dl 133 mg/dl 139 mg/dl Test 11/26/17 20:10 Bedside Glucose 153 mg/dl Assessment and Plan 76yo female with: 1. b/l pneumonia - clinically resolved. Completed 10+ days of IV abx. All abx have been d/c. 2. acute hypoxic respiratory failure 2nd to #2 - improved; will need NC O2 during the day at d/c. Suspected to have Obesity-Hypoventilation syndrome. 3. suspected acute/chronic hypercapnic respiratory failure - due to obesity- hypoventilation syndrome / MOISES? Unable to tolerate CPAP/BIPAP in the past but is using such now without difficulty. Will need at discharge given her overnight oximetry study results. She clearly is worse from a mental standpoint when she does not use night-time CPAP. 4. lethargy - chronic per records - due to hypercarbia/MOISES?? 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 Records from [facility] suggest they were getting ready to perform a pituitary w/u due to lethargy and hypothermia in the past. MRI w/o structural issue, stroke etc although there was a partially empty sella. I suspect she has some element of hypopit - FSH/LH are low; these should be high as she is post menopausal; prolactin is low. She is already on synthroid but FT4 is wnl. Await ACTH level. Unsure if this issue is contributing to lethargy. Could consider endo referral after d/c. Thiamine level also pending. 5. mild acute kidney injury in setting of CKD stage 3/4 - resolved. Resumed diuretic (see below). BPs normal but on low end of normal - will continue to hold ARB. 6. recent acute/chronic diastolic CHF - acute component resolved, then developed ISAAC, and now having some wheezing - possible "cardiac wheezing" from pulmonary edema. Will resume diuretic with bumex 1mg daily. BMP in am. 7. recent pleural effusion s/p thoracentesis - pulmonary has continued to follow; effusions are stable; no further intervention. Effusion was transudative. 8. b/l rib fractures s/p chest compressions for asystolic cardiac arrest - pain control. 9. T2DM - controlled w/ current regimen. 10. asystolic cardiac arrest - thought 2nd to hypoxic pulmonary event - s/p chest compressions & epi - uncertain how long she was w/o a pulse, but daughter reports perhaps 5 minutes at most? MRI w/o signs of hypoxic injury to brain. 11. anemia - heme negative stool. H/h stable. 12. DVT proph - heparin BID. 13. neuropathy - gabapentin had been put on hold due to concerns it was contributing to lethargy. Daughter confirms she has been on the gabapentin " for years" at the current dose. Will resume gabapentin and titrate back to previous dosing. 14. CAD - no ischemic symptoms at this time. Cont asa, statin, BB. 15. metabolic encephalopathy - resolved. dispo - swing bed at [facility] on Tuesday? daughter updated at bedside today Continued [facility] stay due to: ambulation difficulties, multiple IV medications needed Discharge planning: rehab hospital (swing bed - [facility] )
[2017-11-26] MEDS: PRAMIPEXOLE DIHYDROCHLORIDE 0.25MG TAB PO SCH (21:12)
[2017-11-26] MEDS: GABAPENTIN 100 MG CAP PO SCH (21:28)
[2017-11-27] VITALS (10 sets, daily range): BP systolic 111–145; BP diastolic 63–71; PULSE 61–67; TEMP 36.4–36.6; O2SAT 93–96
[2017-11-27] MEDS: ACETAMINOPHEN 325 MG TAB PO PRN ×2 (02:23→13:50)
[2017-11-27] MEDS: ONDANSETRON INJ 2 MG/ML 2 ML VIAL IV PRN ×2 (05:08→13:50)
[2017-11-27] MEDS: HYDROmorphone INJ 0.5 MG/0.5 ML SYR IV PRN (05:09)
[2017-11-27] MEDS: LEVOTHYROXINE 50 MCG TAB PO SCH (06:07)
[2017-11-27] MEDS: ALBUT/IPRATROP 3MG/0.5MG NEB 3 ML VIAL INH SCH ×4 (06:57→19:07)
[2017-11-27 07:33] LABS: CALCIUM 8.6 mg/dl (8.5-10.1); CREATININE 1.54 mg/dl (0.60-1.20); POTASSIUM 4.7 mmol/L (3.5-5.1)
[2017-11-27] MEDS: GABAPENTIN 100 MG CAP PO SCH ×3 (07:43→21:22)
[2017-11-27] MEDS: BUMETANIDE 1 MG TAB PO SCH (07:44)
[2017-11-27] MEDS: CARVEDILOL 6.25 MG TAB PO SCH ×2 (07:44→21:22)
[2017-11-27] MEDS: PANTOprazole SOD 40 MG TAB PO SCH (07:45)
[2017-11-27] MEDS: CHOLECALCIFEROL 1000 INTER.UNIT TAB PO SCH (07:45)
[2017-11-27] MEDS: SERTRALINE HCL 50 MG TAB PO SCH (07:45)
[2017-11-27] MEDS: ASPIRIN 81 MG ECTAB PO SCH (07:45)
[2017-11-27] MEDS: CEROVITE ADV FORMULA TAB PO SCH (07:45)
[2017-11-27] MEDS: THIAMINE HCL 100 MG TAB PO SCH (07:45)
[2017-11-27] MEDS: ATORVASTATIN 20 MG TAB PO SCH (07:46)
[2017-11-27] MEDS: BOOST GLUCOSE CONTROL PO SCH ×3 (09:02→17:00)
[2017-11-27] MEDS: HEPARIN SOD 5000 UNIT/0.5 ML CARP SQ SCH ×2 (09:03→22:24)
[2017-11-27] MEDS: INSULIN GLARGINE SOLOSTAR 100 UNITS/ML 3 ML PEN SC SCH (09:03)
[2017-11-27] MEDS: INSULIN ASPART 100 UNITS/ML 3 ML PEN SC SCH ×4 (09:03→22:00)
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
[2017-11-27] MEDS: PRAMIPEXOLE DIHYDROCHLORIDE 0.25MG TAB PO SCH (21:22)
[2017-11-28 00:07] VITALS: BP 122/53; PULSE 58; TEMP 36.7; O2SAT 90
[2017-11-28] MEDS: ACETAMINOPHEN 325 MG TAB PO PRN ×2 (00:11→08:46)
[2017-11-28] MEDS: LEVOTHYROXINE 50 MCG TAB PO SCH (06:10)
[2017-11-28] MEDS: INSULIN ASPART 100 UNITS/ML 3 ML PEN SC SCH ×2 (06:30→12:51)
[2017-11-28 07:09] VITALS: PULSE 64; O2SAT 95
[2017-11-28] MEDS: ALBUT/IPRATROP 3MG/0.5MG NEB 3 ML VIAL INH SCH ×3 (07:09→15:42)
[2017-11-28 07:27] VITALS: BP 160/72; PULSE 65; TEMP 36.3; O2SAT 95
[2017-11-28 08:00] VITALS: O2SAT 95
[2017-11-28] MEDS ORDERED: INSULIN GLARGINE SOLOSTAR 100 UNITS/ML 3 ML PEN SC SCH (08:00)
[2017-11-28] MEDS: CARVEDILOL 6.25 MG TAB PO SCH (08:18)
[2017-11-28] MEDS: PANTOprazole SOD 40 MG TAB PO SCH (08:18)
[2017-11-28] MEDS: BOOST GLUCOSE CONTROL PO SCH ×2 (08:18→12:00)
[2017-11-28] MEDS: CEROVITE ADV FORMULA TAB PO SCH (08:18)
[2017-11-28] MEDS: ASPIRIN 81 MG ECTAB PO SCH (08:19)
[2017-11-28] MEDS: THIAMINE HCL 100 MG TAB PO SCH (08:19)
[2017-11-28] MEDS: ATORVASTATIN 20 MG TAB PO SCH (08:19)
[2017-11-28] MEDS: CHOLECALCIFEROL 1000 INTER.UNIT TAB PO SCH (08:19)
[2017-11-28] MEDS: BUMETANIDE 1 MG TAB PO SCH (08:19)
[2017-11-28] MEDS: SERTRALINE HCL 50 MG TAB PO SCH (08:19)
[2017-11-28] MEDS: GABAPENTIN 100 MG CAP PO SCH ×2 (08:20→12:51)
[2017-11-28] MEDS: HEPARIN SOD 5000 UNIT/0.5 ML CARP SQ SCH (08:29)
[2017-11-28 11:19] VITALS: PULSE 67; O2SAT 94
[2017-11-28] MEDS ORDERED: MCTP EXT (14:23)
[2017-11-28] MEDS ORDERED: CZR25 PO (14:23)
[2017-11-28] MEDS ORDERED: ZLF50 PO (14:23)
[2017-11-28] MEDS ORDERED: THM100 PO (14:23)
[2017-11-28] MEDS ORDERED: NRN100 PO (14:23)
[2017-11-28] MEDS ORDERED: IPRASOL4 INH (14:23)
[2017-11-28] MEDS ORDERED: NUTR-7 PO (14:23)
[2017-11-28] MEDS ORDERED: NVLGIPEN SC (14:23)
[2017-11-28] MEDS ORDERED: BMX1 PO (14:23)
[2017-11-28] MEDS ORDERED: INSDGIPEN SC (14:23)
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
[2017-11-28 14:39] VITALS: BP 160/72; PULSE 67; TEMP 36.3; O2SAT 94
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
== END 2017-11-28 15:30 | disposition short-term general hospital (02) | DRG 177 ==
LOC: C.2E 14:43 → UNDOADMIN 14:43 → C.2E 15:41 → ENRESERV 11-24 14:18 → C.MS4W 11-24 15:42
PROVIDERS: ADMIT Internal Medicine; ATTEND Family Medicine
PROC: 0W993ZX Drainage of Right Pleural Cavity, Percutaneous Approach, Diagnostic (ICD-10-PCS; principal; 2017-11-18)
DX: J69.0 Pneumonitis due to inhalation of food and vomit (principal); J96.01 Acute respiratory failure with hypoxia; G93.41 Metabolic encephalopathy; J96.02 Acute respiratory failure with hypercapnia; I50.33 Acute on chronic diastolic (congestive) heart failure; J90 Pleural effusion, not elsewhere classified; I13.0 Hypertensive heart and chronic kidney disease with heart failure and stage 1 through stage 4 chronic kidney disease, or unspecified chronic kidney disease; I50.32 Chronic diastolic (congestive) heart failure; N18.4 Chronic kidney disease, stage 4 (severe); E66.2 Morbid (severe) obesity with alveolar hypoventilation; J45.901 Unspecified asthma with (acute) exacerbation; E44.0 Moderate protein-calorie malnutrition; N17.9 Acute kidney failure, unspecified; S22.49XA Multiple fractures of ribs, unspecified side, initial encounter for closed fracture; E11.22 Type 2 diabetes mellitus with diabetic chronic kidney disease; E11.40 Type 2 diabetes mellitus with diabetic neuropathy, unspecified; E78.5 Hyperlipidemia, unspecified; E03.9 Hypothyroidism, unspecified; I25.10 Atherosclerotic heart disease of native coronary artery without angina pectoris; K21.9 Gastro-esophageal reflux disease without esophagitis; D64.9 Anemia, unspecified; R10.9 Unspecified abdominal pain; G25.81 Restless legs syndrome; I25.2 Old myocardial infarction; K43.9 Ventral hernia without obstruction or gangrene; Z79.82 Long term (current) use of aspirin; Z79.899 Other long term (current) drug therapy; Z95.5 Presence of coronary angioplasty implant and graft; Z68.37 Body mass index [BMI] 37.0-37.9, adult; M54.5 Low back pain; R19.7 Diarrhea, unspecified; R33.9 Retention of urine, unspecified; Y84.8 Other medical procedures as the cause of abnormal reaction of the patient, or of later complication, without mention of misadventure at the time of the procedure

== ENCOUNTER 2018-01-25 15:35 | Inpatient (IN) | payer OTHER ==
[~2018-01-25] VITALS: Ht 157.5 cm; Wt 83.8 kg
[~2018-01-25 15:35] MED LIST: ASPI-435 PO; B-COTAB18 PO; BIOT1CAP3 PO; BMX1 PO; CRG625 PO; CZR25 PO; INSDGIPEN SC; IPRASOL4 INH; LEVO50TA PO; MCTP EXT; NRN100 PO; NUTR-7 PO; NVLGIPEN SC; PANT40TA PO; THM100 PO; VTMD1000 PO; ZLF50 PO
[2018-01-25] MEDS ORDERED: ZFRI4 IV (16:49)
[2018-01-25] MEDS ORDERED: SCOP1.5D2 TD (16:49)
[2018-01-25] MEDS ORDERED: ATVI IV (16:49)
[2018-01-25] MEDS ORDERED: MRPIS4 IV (16:49)
[2018-01-25] MEDS ORDERED: CHECK SCOPOLAMINE (16:49)
[2018-01-25] MEDS ORDERED: REMOVE SCOPOLAMINE (16:49)
[2018-01-25] MEDS ORDERED: MoRPHine SULFATE 4 MG/ML 1 ML CARP\\VIAL IV PRN (17:15)
[2018-01-25] MEDS ORDERED: ONDANSETRON INJ 2 MG/ML 2 ML VIAL IV PRN (17:15)
--- NOTE | 2018-01-25 17:24 | History and Physical ---
History & Physical Date & Time of Service: January 25, 2018 at 17:10 Chief Complaint: Primary Care Physician: Teri Locke M.D. History of Present Illness Source: patient The patient is a 77-year-old female with a past medical history of diastolic dysfunction, coronary artery disease status post stent, chronic O2 use, T2DM, peripheral neuropathy, HTN, HLD, MOISES, obesity, CKD stage 3/4, hypothyroidism, and GERD, who was transferred from [facility] last week the patient was initially transferred here due to acute kidney injury, confusion and weakness.. On arrival the patient was found to have a significantly elevated creatinine with hyperkalemia, as well as urinalysis concerning for urinary tract infection. The patient was started on IV antibiotics, fluids, and medications to lower her potassium. There is also concern that the patient was noncompliant with her BiPAP at home causing respiratory acidosis. Despite aggressive treatment the patient's potassium was unable to be controlled and required multiple doses of insulin, calcium gluconate, and eventually once she began taking p.o. and Kayexalate we were able to get her potassium under control. Over the course of the admission the patient's confusion continued to wax and wane, although her white blood cell count and blood cultures did not yield any signs of further infection. On 01/23 the patient continued to deteriorate and became hypotensive, and despite aggressive fluid resuscitation the patient was unable to rebound her blood pressure was transferred to the ICU. At that point the family decided the patient was DNR and would not want to be on pressors, and was placed on comfort care measures with her remaining medications removed. The patient was placed on morphine, scopolamine patch, Ativan, and Zofran to be made more comfortable. The patient was then discharged and placed on hospital hospice. Past Medical/Surgical History Medical Problems: (1) Acute on chronic diastolic CHF (congestive heart failure) (2) Acute renal insufficiency (3) Anemia (4) CHF (congestive heart failure) (5) Hospice care (6) PNA (pneumonia) (7) Thrombocytopenia Social History Smoking Status: Never Smoker Marital Status: Housing status: lives with family, lives with significant other Immunizations History of Influenza Vaccine: Unknown History of Tetanus Vaccine?: Unknown History of Pneumococcal: Unknown History of Hepatitis B Vaccine: Unknown Allergies Coded Allergies: Mushroom (Verified Allergy, Intermediate, unknown reaction; pt reported allergy., 11/21/17) Home Medications Scheduled Aspirin (Aspirin 81), 81 MG PO DAILY B-Complex Vitamins (Vitamin B Complex), 1 TAB PO DAILY Biotin (Biotin), 5,000 MCG PO DAILY Bumetanide (Bumetanide), 1 MG PO QAM Carvedilol (Carvedilol), 6.25 MG PO BID Cholecalciferol (Vitamin D3), 2,000 UNITS PO DAILY Gabapentin (Gabapentin), 200 MG PO TID Insulin Aspart (Novolog Flexpen), 0 UNITS SC ACHS Insulin Glargine (Lantus Solostar), 5 UNITS SC QAM Ipratropium-Albuterol (Duoneb), 3 ML INH QIDR Levothyroxine Sodium (Synthroid), 1 TAB PO DAILY Losartan Potassium (Losartan Potassium), 25 MG PO DAILY Nutritional Supplements (Boost), 1 CAN PO TIDM Pantoprazole Sodium (Protonix), 1 TAB PO DAILY Scopolamine (Transderm-Scop), 1.5 MG TD Q72H Sertraline HCl (Sertraline HCl), 50 MG PO QAM Thiamine HCl (Vitamin B-1), 200 MG PO QAM [Check Scopolamine Patch], 1 EA N/A QS [Remove Scopolamine Patch], 1 EA N/A Q72H Scheduled PRN Lorazepam (Lorazepam), 1 MG IV Q1H PRN for Agitation Miconazole Nitrate (Desenex Shake Powder), 1 APPLN EXT PRN PRN for Affected Skin Folds Morphine Sulfate (Morphine Sulfate), 4 MG IV Q2H PRN for Pain Ondansetron (Ondansetron Hcl), 4 MG IV Q6H PRN for Nausea Review of Systems Unable to obtain review of systems at this time due to patient sedation Physical Exam General Appearance: + obese, + pertinent finding (Sedated and not responsive) Head: normocephalic, atraumatic Respiratory/Chest: chest non-tender, + decreased breath sounds Cardiovascular: regular rate, rhythm, no edema, no gallop Abdomen/GI: normal bowel sounds, non tender, soft Neurologic/Psych: + pertinent finding (Sedated) Impression Assessment and Plan he patient is a 77-year-old female with a past medical history of diastolic dysfunction, coronary artery disease status post stent, chronic O2 use, T2DM, peripheral neuropathy, HTN, HLD, MOISES, obesity, CKD stage 3/4, hypothyroidism, and GERD admitted for hospital hospice Hospital Hospice - dilauded 0.5mg IV q1hr prn pain/dyspnea - Ativan 1mg Q1h IV PRN for Agitation - Scopolamine 1.5 TD q72h - Zofran 4mg IV q6h ORN Code Status - DNR Resident Physician Supervision Note: I interviewed and examined the patient. Discussed with Dr. Fraser and agree with findings and plan as documented in the note. Any exceptions or clarifications are listed here: None Documented By: Sami Rivers no HPI or ROS for inpatient hospice see dc summary same date as well d/w hospice team viatls noted nad breathing unlabored sepsis, pneumonia, ARF, unresponsive -comfort care / inpatient hospice Resuscitation Status DNR VTE Prophylaxis Will order VTE Prophylaxis: No Reason for no VTE drug order: Treatment not indicated, Contraindicated Reason no Mechanical VTE Order: Treatment not indicated Resident Tracking Resident Involvement: Resident Care Provided Care Provided: Adult Hospital Medicine
[2018-01-25] MEDS ORDERED: SCOPOLAMINE 1.5 MG TDSY TD SCH (18:00)
[2018-01-25 18:25] VITALS: O2SAT 94; Ht 157.5 cm; Wt 83.8 kg
[2018-01-25] MEDS: LORAZEPAM 2 MG/ML 1 ML VIAL IV PRN (19:51)
[2018-01-25] MEDS: HYDROmorphone INJ 0.5 MG/0.5 ML SYR IV PRN (23:55)
[2018-01-25] MEDS: LORAZEPAM INJ 1 MG in SYRINGE 0.5 ML IV PRN (23:56)
[2018-01-26] MEDS: CHECK SCOPOLAMINE PATCH PLACEMENT SCH ×3 (00:04→16:00)
[2018-01-26] MEDS: HYDROmorphone INJ 0.5 MG/0.5 ML SYR IV PRN ×3 (10:06→22:07)
--- NOTE | 2018-01-26 17:09 | Family Medicine Progress Note ---
Progress Note Date of Service January 26, 2018. Subjective Pt evaluation today including: conversation w/ family, physical exam, chart review, lab review, review of studies Pain: Patient appears comfortable Voiding: dotson catheter in place Family states patient agitation improved after switching to Dilaudid from Morphine for pain control Additional Comments: Patient sedated and unable to provide subjective ROS Medications Current Inpatient Medications Medications (Trade) Dose Ordered Sig/Dexter Route Start Time Stop Time Status Last Admin Dose Admin Lorazepam (Ativan Inj) 1 mg Q1H PRN IV 01/25/18 17:15 02/24/18 17:14 01/26/18 22:08 1 MG Ondansetron HCl (Zofran Inj) 4 mg Q6H PRN IV 01/25/18 17:15 02/24/18 17:14 Scopolamine (Transderm-Scop Patch) 1.5 mg Q72H TD 01/25/18 18:00 02/24/18 17:59 01/25/18 18:43 1.5 MG Miscellaneous Information (Check Scopolamine Patch Placement) 1 ea QS N/A 01/26/18 00:00 02/25/18 00:00 01/26/18 16:00 1 EA Miscellaneous (Remove Transderm-Scop Patch) 1 ea Q72H N/A 01/28/18 17:59 02/27/18 17:58 Hydromorphone HCl (Dilaudid Inj) 0.5 mg Q1H PRN IV 01/25/18 21:45 02/08/18 21:44 01/26/18 22:07 0.5 MG Lorazepam 1 mg/ Syringe 1 ml @ 1 mls/min Q1H PRN IV 01/25/18 23:45 02/24/18 23:44 01/25/18 23:56 1 MLS/MIN Objective Vital Signs Date Time Temp Pulse Resp B/P (MAP) Pulse Ox O2 Delivery O2 Flow Rate FiO2 01/26/18 11:52 Nasal Cannula 5.0 01/26/18 00:01 Nasal Cannula 5.0 Physical Exam General Appearance: no apparent distress Eyes: normal inspection, PERRL Neck: supple, trachea midline Respiratory/Chest: chest non-tender, no respiratory distress, + decreased breath sounds, + pertinent finding (unlabored breathing) Cardiovascular: regular rate, rhythm, no edema, no gallop Neurologic/Psychiatric: + pertinent finding (Sedated) Assessment and Plan The patient is a 77-year-old female with a past medical history of diastolic dysfunction, coronary artery disease status post stent, chronic O2 use, T2DM, peripheral neuropathy, HTN, HLD, MOISES, obesity, CKD stage 3/4, hypothyroidism, and GERD admitted for hospital hospice [facility] - Dilaudid 0.5mg IV q1hr prn pain/dyspnea - Ativan 1mg Q1h IV PRN for Agitation - Scopolamine 1.5 TD q72h - Zofran 4mg IV q6h ORN Code Status - DNR Resident Physician Supervision Note: I interviewed and examined the patient. Discussed with Dr. Fraser and agree with findings and plan as documented in the note. Any exceptions or clarifications are listed here: None Documented By: Sami Rivers no HPI or ROS obtainable family doing OK pt appears comfortable hospice nurse at bedside vitals noted nad breathing unlabored appearing comfortable sepsis, pneumonia, acute renal failure -comfort care continues, appearing comfortable overall Resident Tracking Resident Involvement: Resident Care Provided Care Provided: Adult Hospital Medicine
[2018-01-26] MEDS: LORAZEPAM 2 MG/ML 1 ML VIAL IV PRN (22:08)
[2018-01-27] MEDS: CHECK SCOPOLAMINE PATCH PLACEMENT SCH ×3 (00:06→16:02)
[2018-01-27] MEDS: LORAZEPAM INJ 1 MG in SYRINGE 0.5 ML IV PRN ×2 (02:12→06:35)
[2018-01-27] MEDS: HYDROmorphone INJ 0.5 MG/0.5 ML SYR IV PRN ×7 (02:12→20:01)
[2018-01-27] MEDS: LORAZEPAM 2 MG/ML 1 ML VIAL IV PRN ×5 (10:31→20:01)
--- NOTE | 2018-01-27 10:33 | Progress Note ---
Subjective Date of Service: January 27, 2018. Subjective doing well - comfortable. family pleased with care. all seem to be coping/ grieving appropriately as well no HPI or ROS obtainable from pt Objective Vital Signs Date Time Temp Pulse Resp B/P (MAP) Pulse Ox O2 Delivery O2 Flow Rate FiO2 01/27/18 00:18 Nasal Cannula 5.0 01/26/18 11:52 Nasal Cannula 5.0 Physical Exam General Appearance: no apparent distress Neck: trachea midline Respiratory/Chest: no respiratory distress, no accessory muscle use Skin: normal color Assessment and Plan sepsis, pneumonia, acute renal failure -appearing comfortable. continue current care.
[2018-01-28] MEDS: HYDROmorphone INJ 0.5 MG/0.5 ML SYR IV PRN ×2 (00:07→02:23)
[2018-01-28] MEDS: LORAZEPAM INJ 1 MG in SYRINGE 0.5 ML IV PRN ×2 (00:07→02:53)
[2018-01-28] MEDS: CHECK SCOPOLAMINE PATCH PLACEMENT SCH (00:10)
--- NOTE | 2018-01-28 03:10 | Death Summary ---
Summary of Admission Date January 25, 2018 at 17:07 Date & Time of January 28, 2018. 0310 Cause of Acute hypoxic respiratory failure Secondary Diagnoses pneumonia ISAAC on CKD HTN HLD GERD MOISES Hospital Course HPI: The patient is a 77-year-old female with a past medical history of diastolic dysfunction, coronary artery disease status post stent, chronic O2 use, T2DM, peripheral neuropathy, HTN, HLD, MOISES, obesity, CKD stage 3/4, hypothyroidism, and GERD, who was transferred from [facility] last week the patient was initially transferred here due to acute kidney injury, confusion and weakness.. On arrival the patient was found to have a significantly elevated creatinine with hyperkalemia, as well as urinalysis concerning for urinary tract infection. The patient was started on IV antibiotics, fluids, and medications to lower her potassium. There is also concern that the patient was noncompliant with her BiPAP at home causing respiratory acidosis. Despite aggressive treatment the patient's potassium was unable to be controlled and required multiple doses of insulin, calcium gluconate, and eventually once she began taking p.o. and Kayexalate we were able to get her potassium under control. Over the course of the admission the patient's confusion continued to wax and wane, although her white blood cell count and blood cultures did not yield any signs of further infection. On 01/23 the patient continued to deteriorate and became hypotensive, and despite aggressive fluid resuscitation the patient was unable to rebound her blood pressure was transferred to the ICU. At that point the family decided the patient was DNR and would not want to be on pressors, and was placed on comfort care measures with her remaining medications removed. The patient was placed on morphine, scopolamine patch, Ativan, and Zofran to be made more comfortable. The patient was then discharged and placed on hospital hospice. Course: No change in medications after initially placed on hospice care. Patient passed peacefully at 0310.
== END 2018-01-28 05:44 | disposition expired | DRG 951 ==
LOC: C.4E 17:07
PROVIDERS: ADMIT Student in an Organized Health Care Education/Training Program; ATTEND Family Medicine
DX: Z51.5 Encounter for palliative care (principal); A41.9 Sepsis, unspecified organism; J18.9 Pneumonia, unspecified organism; N17.9 Acute kidney failure, unspecified; I13.0 Hypertensive heart and chronic kidney disease with heart failure and stage 1 through stage 4 chronic kidney disease, or unspecified chronic kidney disease; I50.30 Unspecified diastolic (congestive) heart failure; Z66 Do not resuscitate; N18.3 Chronic kidney disease, stage 3 (moderate); E78.5 Hyperlipidemia, unspecified; K21.9 Gastro-esophageal reflux disease without esophagitis; G47.33 Obstructive sleep apnea (adult) (pediatric); E66.9 Obesity, unspecified; Z68.33 Body mass index [BMI] 33.0-33.9, adult; Z99.81 Dependence on supplemental oxygen; Z95.5 Presence of coronary angioplasty implant and graft